=== PATIENT | male | born 1950 | race Caucasian/White ===

== ENCOUNTER 2024-09-14 05:43 | Inpatient (IN) | payer OTHER, SELFPAY ==
[2024-09-14] VITALS (15 sets, daily range): BP systolic 115–161; BP diastolic 68–126; BMI 48.4
--- NOTE | 2024-09-14 01:20 | ED.GENMED ---
History of Present Illness
General
Chief Complaint: Fall
Source: patient
Exam Limitations: none
Time Seen by Provider: 09/14/24 01:04
History of Present Illness
History of Present Illness:
73yoM with a history of morbid obesity and hypertension presenting via EMS for evaluation after a fall. Patient was attempting to change his dirty underwear this evening. He slid out of his chair and fell onto the floor. He denies any head strike
or loss of consciousness. Patient was unable to get himself back into the chair and EMS was called. EMS had a difficult time transferring him and brought him to the ED for evaluation of weakness. Patient has no other complaints at this time. He
is hypoxic to 88% on arrival although denies any chest pain or shortness of breath.
Past History
Past History
ED Past Medical History: HTN and Psychiatric (Anxiety); Negative Asthma, Hypercholesterolemia or NIDDM
ED Past Surgical History: Orthopedic (back surgery 2016 x 2, rods and screws)
Social History
Tobacco: Smoker
Alcohol: Binge drinker (scotch)
Drug: None
Personal:
Living: with family
Employment: Not employed
Phy Exam
Physical Exam
Physical Exam:
Chronically ill appearing, no apparent distress
General Physical Exam
General Presentation: no apparent distress
General Skin: warm and dry
General Habitus: elderly, obese and poor hygiene
General Mental: alert
ENT Exam
ENT Exam: normocephalic and other (No external signs of head trauma. No cervical spine tenderness.)
Cardiovascular Exam
Cardiovascular Exam: tachycardia
Pulmonary Exam
Pulmonary Exam: no respiratory distress and decreased breath sounds
Neurological Exam
Neurological Exam: alert
Jaz Coma Scale
Eye Opening: Spontaneous
Verbal Response: Oriented
Motor Response: Obeys Commands
GCS Total Score: 15
Skin Exam
Skin Exam: normal color, warm/dry and other (Skin irritation/redness under skin folds)
Psychiatric Exam
Psychiatric Exam: normal mood/affect
Course
Orders/Labs/Results
Orders:
Orders
09/14/24 01:17
EKG [Electrocardiogram (*1)] Urgent
Reason for Study: Tachycardia
EKG- Treatment ONCE
09/14/24 01:18
Cardiac Monitoring- Treatment ONCE
09/14/24 01:19
CR Chest Portable - 1 View Urgent
Comment:
Reason For Exam: Hypoxia
Reason Study Needs to be Portable: Unable to Transport
09/14/24 01:40
Complete Blood Count/With Diff Urgent
Comprehensive Metabolic Panel Urgent
D-Dimer Urgent
Magnesium Urgent
TSH Reflex To Free T4 Urgent
Total CK [Creatine Phosphokinase] Urgent
Troponin I Urgent
09/14/24 02:27
0.9% Sodium Chloride 500 ml [Nss] 500 ml IV BOLUS
09/14/24 04:34
Apixaban [Eliquis] 5 mg PO NOW STA
09/14/24 04:35
Admit/Transfer Patient As Directed
Co-Sign Provider:
Level of Care: Inpatient admission
Assign to:: IVU
Physician / Group: Antonia Griffin
Diagnosis: atrial flutter
Reason for Hospitalization: atrial flutter
Expected length of stay greater than two midnights?: Yes
ELOS- Estimated Length of Stay in days: 3
I certify the patient meets the requirements for IP care: Yes
Code Status As Directed
Resuscitation Status: Full Code
PRN Pain Medication Management As Directed
May give lesser potent ordered pain med per pt: Yes
preference::
Protocol:: Medication orders for pain may be administered in a
manner that supports deferring to patient preference
when the pt is:
- Requesting an ordered lesser potent pain medication.
Least to most potent pain medications are defined
as: acetaminophen < NSAID < tramadol < opioids
(morphine, oxycodone, hydromorphone).
- Requesting a lesser dose of the same medication IF
ORDERED.
- Requesting a less intrusive route of administration
if both routes are prescribed by the provider (PO <
IV).
09/14/24 04:38
Metoprolol [Lopressor] 25 mg PO NOW STA
09/14/24 05:05
Urinalysis Reflex To Culture Urgent
Date Specimen was Collected: 09/14/24
Time Specimen was Collected: 05:06
09/14/24 Breakfast
Cholesterol Lowering
At Your Request: Limited Participation
Cholesterol Lowering: Sodium, 2 Gram
09/14/24 08:43
Acetaminophen [Tylenol] 650 mg PO Q4HPRN PRN
Alprazolam [Xanax] 1 mg PO TIDPRN PRN anxiety
Bisacodyl [Dulcolax] 10 mg RECTAL [id number] PRN
Bupropion(24Hr)Extended Releas [WELLBUTRIN XL (24 hour extended release)] 150 mg PO Daily
Docusate W/Senna [Senokot-S] 1 tablet PO BIDPRN PRN
Paroxetine [Paxil] 40 mg PO DAILY
Polyethylene Glycol Powder [Miralax] 17 grams PO DAILYPRN PRN
09/14/24 08:43
Echo 2D MMode Color/Doppler Routine
Reason for Study: atrial flutter
Case Management Consult ONCE
Case Management Consult: Other
Comment: cost of Eliquis 5mg PO BID
Consult Cardiology [CARDIOLOGY CONSULT] Routine
Consulting Provider: Jun Spicer
Was physician already notified: No
Reason for consult: new aflutter
Consult Notification Routine
Specialty to Notify: Cardiology
Date consulting provider notified: 09/14/24
Time consulting provider notified: 08:54
Notified:: Provider
Activity As Directed
Activity Level: As Tolerated
Vital Signs As Directed
Frequency: Per unit guidelines
09/14/24 09:00
Lisinopril [Zestril] 20 mg PO DAILY
09/14/24 20:00
Apixaban [Eliquis] 5 mg PO BID
Metoprolol [Lopressor] 25 mg PO BID
09/15/24 Breakfast
NPO
Allow oral meds: Yes
Allow clear liquids: No
Basic Metabolic Panel IN AM
Complete Blood Count/No Diff IN AM
Magnesium IN AM
TSH IN AM
Abnormal Lab Results
09/14/24
01:40
WBC 11.0 H 10^3/uL
(4.8-10.8)
RBC 4.61 L 10^6/uL
(4.70-6.10)
MCV 97.8 H fL
(80.0-94.0)
MCH 33.2 H pg
(27.0-31.0)
RDW 15.0 H %
(11.5-14.5)
Abs Immat Gran (auto) 0.1 H 10^3/uL
(0-0.05)
Absolute Neuts (auto) 8.4 H 10^3/uL
(1.4-6.5)
Absolute Monos (auto) 0.8 H 10^3/uL
(0.1-0.6)
Immature Gran % 0.8 H %
(0-0.5)
Neutrophils % 75.9 H %
(42.2-75.2)
Lymphocytes % 12.3 L %
(20.5-51.1)
BUN 7 L mg/dl
(9-20)
Glucose 119 H mg/dl
(70-99)
Creatine Kinase 23 L U/L
(55-170)
Total Protein 6.1 L g/dl
(6.3-8.2)
09/14/24 01:40
09/14/24 01:40
Vital Signs
Initial and Last Documented VS:
Initial Vital Signs
Pulse Ox
88
09/14/24 01:00
Last Documented Vital Signs
Temp Pulse Resp BP Pulse Ox
98.3 F 88 20 140/84 97
09/14/24 01:35 09/14/24 09:32 09/14/24 09:26 09/14/24 09:32 09/14/24 09:26
MDM/Problems Addressed
Differential Diagnosis Includes:
73yoM here after a fall out of his chair. Unable to get up so EMS was called. Denies injuries. HR 130 on arrival. Oxygen saturation 88-90% on room air. He is chronically ill appearing and morbidly obese. Differential diagnosis includes but is not
limited to: failure to thrive, arrhythmia, PE, dehydration
Initial ED plan: Check cardiac labs, magnesium, TSH, D-dimer, EKG, and CXR.
*Pulse Oximetry
Patient hypoxic: no (90%)
*EKG
Interpreted by ED Provider?: Yes
EKG Intrepretation Date: 09/14/24
Heart Rate: 128
Rate: tachycardiac
Rhythm: other (sinus tach vs. aflutter)
[place]: right axis deviation
QRS Pattern: normal QRS
Ischemia: no ischemia
*Critical Care Note
Total Time (30-74mins, 75-104mins- exclusive of procedures): Not Applicable
Update Note
Update Note:
EKG shows sinus tachycardia vs. aflutter. Labs unremarkable including normal electrolytes, TSH, troponin. D-dimer normal making PE very unlikely. CXR appears clear per my interpretation without any obvious infiltrates/pulmonary edema. Patient
persistently tachycardic. Will admit for further management.
ED Attending Note
-
Portions of this chart may have been created with voice recognition software.� Occasional wrong word or��sound alike� substitutions may have occurred due to the inherent limitations of voice recognition software.
Discharge Plan
Departure
Patient Disposition: Admit
Date of Disposition: 09/14/24
Time of Disposition: 02:45
Presentation/result/management discussed w/ accepting MD/DO: Hospitalist
Discharge Problem:
Tachycardia, Ground-level fall
Interventions
Interventions:
*Risk Screen - Suicide Last Done: 09/14/24 01:01
*General Assessment Last Done: 09/14/24 01:37
*Neglect/Abuse Screening Last Done: 09/14/24 01:37
*ED- Fall Risk Assessment Last Done: 09/14/24 01:37
*ED COVID-19 Vaccine History Last Done: 09/14/24 01:37
*Nursing Disposition Last Done: 09/14/24 08:30
ED-Musculoskeletal Assessment Last Done: 09/14/24 01:15
ED- Neurological Assessment Last Done: 09/14/24 01:15
ED-Skin Assessment Last Done: 09/14/24 01:15
Discharge Date and Time
Discharge Date/Time: 09/14/24 08:31
[2024-09-14 01:46] LABS: Hematocrit 45.1 % (39.0-52.0); Hemoglobin 15.3 g/dL (13.0-18.0); Mean Corp Hgb Conc. 33.9 g/dL (33.0-37.0); Mean Corpuscular Volume 97.8 fL (80.0-94.0); Nucleated Red Blood Cells % 0 % (-); Platelet Count 243 10^3/uL (130-400); Red Cell Dist. Width 15.0 % (11.5-14.5)
[2024-09-14 01:59] LABS: ALT (SGPT) 27 U/L (0-50); AST (SGOT) 29 U/L (17-59); Albumin 3.7 g/dl (3.5-5.0); Alkaline Phosphatase 112 U/L (38-126); Blood Urea Nitrogen 7 mg/dl (9-20); Calcium 9.0 mg/dl (8.4-10.2); Carbon Dioxide 26 mmol/L (22-30); Chloride 106 mmol/L (98-107); D-Dimer 0.39 ug/mlFEU (0.00-0.50); Estimated Creatinine Clearance > 125 ml/min; Glucose 119 mg/dl (70-99); Magnesium 2.1 mg/dl (1.6-2.3); Potassium 3.9 mmol/L (3.5-5.1); Sodium 142 mmol/L (135-145); Total Protein 6.1 g/dl (6.3-8.2); eGFR > 60.00
[2024-09-14 02:22] LABS: Troponin I < 0.012 ng/ml
[2024-09-14] MEDS: NSS 500 IV (02:42)
--- NOTE | 2024-09-14 04:10 | HPS.HSE ---
Family Physician
-
Family Physician: Jorje Goode
Chief Complaint
-
difficulty getting up from ground after fall from chair
History of Present Illness
Mr. Partha Young is a 73 yo man with hx essential HTN, anxiety, obesity presents to the ER for evaluation post a fall. Patient fell out of his chair and onto the floor while changing. He did not hit head or lose consciousness. Patient couldn't
get back into chair and so EMS was called.
Patient states he could usually walk around house with a walker. He denies chest pain or palpitations. No recent fevers/chills. No nausea/vomiting/diarrhea. No shortness of breath.
Medical History
Past Medical History
Past Medical History: Reports Other (Essential HTN, Anxiety, Obesity )
Past Surgical History: Reports Other
Social History
Tobacco: Non-smoker
Alcohol: Occasional
Family History
Family History: Not pertinent
Allergies / Home Medications
Allergies reflects when Allergies were last updated in [facility].
Home Medications with original date entered in [facility]
Allergy/Medication List:
Allergies
Allergy/AdvReac Type Severity Reaction Status Date / Time
No Known Allergies Allergy Verified 06/08/21 14:55
Home Medications
alprazolam 1 mg tablet 1 mg PO TID PRN anxiety 11/17/15
lisinopril 40 mg tablet 40 mg PO DAILY 11/17/15
paroxetine HCl 20 mg tablet 40 mg PO DAILY 11/17/15
bupropion HCl 150 mg 24 hr tablet, extended release 150 mg PO Daily 06/08/21
ibuprofen 200 mg tablet 200 mg PO Q4HPRN PRN pain 06/08/21
cholecalciferol (vitamin D3) 25 mcg (1,000 unit) tablet (Vitamin D3) 25 mcg PO DAILY 09/14/24
Review of Systems
-
History Source: Patient
A 12 point ROS was completed and negative except as noted: Yes
Physical Exam
Vital Signs
Vital Signs
Temp Pulse Resp BP Pulse Ox
98.3 F 131 16 161/126 93
09/14/24 01:35 09/14/24 03:00 09/14/24 03:00 09/14/24 03:00 09/14/24 03:00
Physical Exam
General: No Apparent Distress
HEENT: PERRLA
Respiratory: Clear; No Wheezes
Cardiac: Tachycardia
GI: Soft and Non Tender
Musculoskeletal: No Edema
Skin: Warm and Dry; No Rash
Neuro: AO x 3
Psych: Calm
Laboratory Results
-
09/14/24 01:40
09/14/24 01:40
Laboratory Results
Total Bilirubin 0.6 mg/dl (0.2-1.3) 09/14/24 01:40
AST 29 U/L (17-59) 09/14/24 01:40
ALT 27 U/L (0-50) 09/14/24 01:40
Alkaline Phosphatase 112 U/L (38-126) 09/14/24 01:40
Troponin I < 0.012 ng/ml 09/14/24 01:40
Data Reviewed
-
Diagnostic Radiology: Report Reviewed by me
Lab Data: Labs Reviewed by me
Impression/Plan
-
Mr. Partha Young is a 73 yo man with hx essential HTN, anxiety, obesity presents to the ER for evaluation post a fall. Patient fell out of his chair and onto the floor while changing. He did not hit head or lose consciousness. Patient couldn't
get back into chair and so EMS was called. Patient found to be in aflutter which can explain new weakness today.
Triage VS significant for tachycardia and SpO2 88% RA
LABS: WBC 11, Hg 15.3, PLT 243, Na 142, K+ 3.9, Cl 106, CO2 26, BUN 7, Cr 0.7, Glucose 119, liver enzymes WNL, Trop < 0.012
TSH 0.72
EKG: aflutter with variable AV block
MAR NS 500cc
Atrial Flutter
-new diagnosis
-admit to IVU
-will start Metoprolol 25mg PO BID
-[id number] score = 2, start Eliquis 5mg PO BID
-Cardiology consult
-NPO after MN Sunday for possible Cardioversion
Hypoxic respiratory insufficiency
patient denies shortness of breath, likely related to atelectasis and body habitus
wean O2 as able
Essential HTN
-lower dose of Lisinopril to make room for AV sofia blocking effect on BP
Anxiety
-[employer]ER Wellbutrin, Xanax PRN
DVT PPx Eliquis
FULL CODE
[2024-09-14] MEDS: ELIQUIS 5 MG PO ×2 (05:14→20:01)
[2024-09-14] MEDS: LOPRESSOR 25 MG PO ×2 (05:14→20:01)
--- NOTE | 2024-09-14 07:39 | W.PN.HOSP.TC ---
Today's Communication/Plan
-
See plan
Assessment / Plan
Assessment / Plan
Physical Exam
General: No Apparent Distress
HEENT: Normocephalic
Respiratory: Clear; No Wheezes
Cardiac: Tachycardia
GI: Soft and Non Tender
Musculoskeletal: No Edema
Skin: Warm and Dry; No Rash
Neuro: AO x 3
Psych: Calm
Assessment/Plan
73 y/o male with past medical history essential hypertension, anxiety and obesity presented to the emergency room for evaluation post a fall. Patient fell out of his chair and onto the floor while changing. He did not hit head or lose
consciousness. Patient couldn't get back into chair and so EMS was called. Patient stated he could usually walk around house with a walker. He denied chest pain or palpitations. No recent fevers/chills. No nausea/vomiting/diarrhea. No shortness of
breath.

Triage VS significant for tachycardia and SpO2 88% RA
LABS: WBC 11, Hg 15.3, PLT 243, Na 142, K+ 3.9, Cl 106, CO2 26, BUN 7, Cr 0.7, Glucose 119, liver enzymes WNL, Trop < 0.012
TSH 0.72
EKG: aflutter with variable AV block
MAR NS 500cc

Atrial Flutter
-New diagnosis
-Continue to monitor in IVU
-Continue newly started Metoprolol 25mg PO BID
-[id number] score = 2, start Eliquis 5mg PO BID
-Cardiology consult
-NPO after MN Sunday for possible Cardioversion
Hypoxic respiratory insufficiency
-patient denies shortness of breath, likely related to atelectasis and body habitus
-wean O2 as able
Essential Hypertension
-Dose of Lisinopril lowered to 20 mg daily, to make room for AV sofia blocking effect on BP
Anxiety
-[employer] CONSULTANT Wellbutrin, Xanax PRN
DVT Prophylaxis: Eliquis
Code Status: FULL CODE
Anticipated Discharge: > 48 hours
Subjective/Interval History
-
Date of Service: September 14, 2024
Patient was seen and examined. He denied any chest pain, shortness of breath, dizziness or any other symptoms or complaints.
Objective Data
-
Labs:
Laboratory Results
09/14/24
01:40
WBC 11.0 H
Hgb 15.3
Hct 45.1
Plt Count 243
Sodium 142
Potassium 3.9
Chloride 106
Carbon Dioxide 26
BUN 7 L
Creatinine 0.7
Glucose 119 H
Calcium 9.0
Total Bilirubin 0.6
AST 29
ALT 27
Alkaline Phosphatase 112
Vital Signs:
Vital Signs
Temp Pulse Resp BP Pulse Ox
98.3 F 123 21 154/99 90
09/14/24 01:35 09/14/24 07:00 09/14/24 07:00 09/14/24 07:00 09/14/24 05:15
[2024-09-14] MEDS: PAXIL 40 MG PO (09:32)
[2024-09-14] MEDS: WELLBUTRIN XL (24 hour extended release) 150 MG PO (09:32)
[2024-09-14] MEDS: ZESTRIL 20 MG PO (09:32)
[2024-09-14] MEDS: FLUSH (NSS) 1 FLUSH IV (09:33)
--- NOTE | 2024-09-14 10:17 | PTCARENOTE ---
Received patient from the ED, transferred to the bed with slider sheet. Patient AAO x 3, difficulty lying on his back while changing linens due to back pain. Incontinent of a large amount of urine, patient states he wears depends at home and slid
out of his chair while changing and was unable to get up from the floor. Severe areas of MASR under breasts, abdominal folds, groins and perineal are. Patient states he uses a walker at home and normally sleeps in a chair. He telephoned his at
home to tell her where he was located. Patient in SR upon admission and offers no complaints other than stating he was 'nervous'. Given AM meds, refusing breakfast at this time, call kaden in reach.
[2024-09-14] MEDS: DESENEX/MITRAZOL/ZEASORB 1 APPLIC TOPICAL ×2 (13:45→20:01)
[2024-09-14] MEDS: ANTIFUNGAL CLEAR 1 APPLIC TOPICAL ×2 (13:45→20:01)
[2024-09-14] MEDS: XANAX 1 MG PO ×2 (14:30→21:13)
--- NOTE | 2024-09-14 14:46 | PTCARENOTE ---
Patient with multiple areas of extreme MASD on his axilla, under his breasts, abdominal and groin folds. Areas very reddened and tender, he is grossly incontinent and that he sits in his recliner most of the day. Toe nails extremely long, states he
does not leave the house at all and that his PCP comes to his home. States his shower is upstairs and he has not been getting around well. in and appears overwhelmed, states 'I guess I'm not doing a good job'. Patient given a complete bed
bath, antifungal powder/lotions applied. WOC and case management consulted, will request PT/OT eval.
--- NOTE | 2024-09-14 16:57 | CON.CAR ---
Consultation
Consultation Request
Date/Time Consultation Requested: 09/14/2024
Date/Time Consultation Performed: 09/14/2024
Requesting Provider: Dr. Griffin
Performing Provider: Dr. Spicer
Reason for Consultation: Possible atrial flutter
Medical History
-
Chief Complaint: Fall
History of Present Illness:
73-year-old male with hypertension, former heavy smoker (quit approximately 1 year ago), likely essential tremor/Parkinson's (clinical observation), binge drinker, and morbid obesity (who primarily uses a walker) presenting after falling out of a
chair at home. The patient denies any prodromal symptoms. He states that he fell out of the chair after trying to change his adult diaper. He denies chest pain, shortness of breath, palpitations, or loss of consciousness. He has chronic lower
extremity swelling. He admits to drinking a notable amount of alcohol (1/2 bottle of scotch/whiskey daily throughout the week), but he states that it is not every single day. He states that he had more to drink this holiday weekend. Cardiology
was consulted for possible atrial flutter. Of note, the patient has had recurrent falls at home for which she has presented to the ER several times over the years.
Past Medical History
Past Medical History: HTN
Past Surgical History: Orthopedic (Back surgery)
Social History
Tobacco: Former Smoker (Quit 1 year ago)
Alcohol: Chronic Alcoholic (Typically 1/2 bottle of scotch daily, sometimes more)
Drug: None
Personal:
Living: With Family
Family History
Family History: Reviewed & Not Pertinent
Allergies / Home Medications
Allergy/AdvReac Type Severity Reaction Status Date / Time
No Known Allergies Allergy Verified 06/08/21 14:55
�Medication �Instructions �Recorded �Confirmed �Type
alprazolam 1 mg tablet 1 mg PO TID PRN anxiety 11/17/15 09/14/24 History
lisinopril 40 mg tablet 40 mg PO DAILY 11/17/15 09/14/24 History
paroxetine HCl 20 mg tablet 40 mg PO DAILY 11/17/15 09/14/24 History
bupropion HCl 150 mg 24 hr tablet, 150 mg PO Daily 06/08/21 09/14/24 History
extended release
ibuprofen 200 mg tablet 200 mg PO Q4HPRN PRN pain 06/08/21 09/14/24 History
cholecalciferol (vitamin D3) 25 25 mcg PO DAILY 09/14/24 09/14/24 History
mcg (1,000 unit) tablet (Vitamin
D3)
Review of Systems
-
All other systems: Negative unless noted
Musculoskeletal: Joint Pain
Physical Exam
Vital Signs
Temp Pulse Resp BP Pulse Ox
97.9 F 87 20 117/73 96
09/14/24 14:59 09/14/24 15:45 09/14/24 14:59 09/14/24 15:00 09/14/24 15:00
Lab Results
09/14/24 01:40
09/14/24 01:40
Troponin I < 0.012 ng/ml 09/14/24 01:40
Physical Exam
General: No Apparent Distress and Comfortable
HEENT: Normocephalic
Respiratory: Clear (Anteriorly)
Cardiac: S1/S2 and Regular Rhythm
Breast: N/A
GI: Soft
Rectal: Deferred by Provider
Musculoskeletal: Edema (Trace; obese)
Skin: Warm and Dry
Neuro: AO x 3 and Tremors (Baseline tremor noted on the right side (hand and much more prominent in his right foot))
Psych: Calm
Impression / Plan
-
73-year-old male with hypertension, former heavy smoker (quit approximately 1 year ago), likely essential tremor/Parkinson's (clinical observation), binge drinker, and morbid obesity (who primarily uses a walker) presenting after falling out of a
chair at home. The patient denies any prodromal symptoms. He states that he fell out of the chair after trying to change his adult diaper. He denies chest pain, shortness of breath, palpitations, or loss of consciousness. He has chronic lower
extremity swelling. He admits to drinking a notable amount of alcohol (1/2 bottle of scotch/whiskey daily throughout the week), but he states that it is not every single day. He states that he had more to drink this holiday weekend. Cardiology
was consulted for possible atrial flutter. Of note, the patient has had recurrent falls at home for which she has presented to the ER several times over the years.
Tachycardia:
- Upon review of the patient's EKG, uncertain that that is truly atrial flutter--could be sinus tachycardia.
- Patient's baseline tremor is interfering with accurate interpretation.
- Continue monitor tech; will have EP Cardiology review tomorrow.
- The patient was started on Eliquis; discontinue if EP Cardiology does not believe this is atrial flutter.
- Of note, the patient appears to be a fall risk--he has had recurrent falls throughout the year and is a chronic, heavy drinker at times; also uses a walker, but still has falls.
- Echocardiogram tomorrow.
- TSH is normal.
Hypertension:
- Blood pressure is currently controlled.
- Continue lisinopril 20 mg daily.
- Patient was started on metoprolol tartrate 25 mg PO BID; continue for now.
Alcohol dependence:
- Monitor for signs of alcohol withdrawal.
- Management as per primary team.
Chronic smoker:
- Quit 1 year ago.
- Likely has underlying COPD, but respiratory status appears to be stable at this time.
Morbid obesity:
- Chronic; weight loss recommended.
Data Reviewed
-
EKG: Report Reviewed by me (Sinus tachycardia cardia versus atrial flutter)
Radiology: Report Reviewed by me (Chest X-ray 09/14/2024: Mild cardiomegaly with findings suggestive of mild pulmonary edema)
Medical Tests (Nuc Med, Echo etc): Other (Echocardiogram ordered)
Labs: Labs Reviewed by me, Discussed with Nurse, Discussed with Patient and Discussed with Family ( at bedside)
--- NOTE | 2024-09-14 18:11 | PTCARENOTE ---
Patient complaining of feeling anxious, given xanax PO with relief. Appetite poor, incontinent of a large amount of stool.
--- NOTE | 2024-09-14 21:07 | PTCARENOTE ---
Received pt @ change of shift. AAOx3, VSS on 2L NC. NSR on monitor. Pt has MASB under all skin folds-- orders followed for topicals-- see MAR. Pt verbalizes being anxious-- RN informed he was not able to get his next dose of Xanax until later-- pt
understands. Discussed plan of care for evening. Pt verbalizes understanding. Call alfonso within reach..
[2024-09-15] VITALS (13 sets, daily range): BP systolic 118–175; BP diastolic 69–105; PULSE 77; O2SAT 95–98
[2024-09-15] MEDS: XANAX 1 MG PO ×3 (01:03→19:04)
[2024-09-15 04:43] LABS: Hematocrit 43.1 % (39.0-52.0); Hemoglobin 14.5 g/dL (13.0-18.0); Mean Corp Hgb Conc. 33.6 g/dL (33.0-37.0); Mean Corpuscular Volume 100.9 fL (80.0-94.0); Platelet Count 182 10^3/uL (130-400); Red Cell Dist. Width 15.1 % (11.5-14.5)
[2024-09-15 04:53] LABS: Blood Urea Nitrogen 12 mg/dl (9-20); Calcium 9.2 mg/dl (8.4-10.2); Carbon Dioxide 30 mmol/L (22-30); Chloride 106 mmol/L (98-107); Estimated Creatinine Clearance > 125 ml/min; Glucose 101 mg/dl (70-99); HDL Cholesterol 49 mg/dl; LDL Cholesterol, Calculated 105 mg/dl; Magnesium 2.3 mg/dl (1.6-2.3); Potassium 4.0 mmol/L (3.5-5.1); Sodium 142 mmol/L (135-145); Very Low Density Lipoprotein 29 mg/dl (0-30); eGFR > 60.00
[2024-09-15 05:24] LABS: TSH 1.43 uIU/ml (0.47-4.68)
--- NOTE | 2024-09-15 07:42 | W.PN.HOSP.TC ---
Today's Communication/Plan
-
wean O2 supplementation as tolerated
PT/OT
rate Control
MSAS protocol
Assessment / Plan
Assessment / Plan
Physical Exam
General: No Apparent Distress, appears relatively comfortable, morbidly obese
HEENT: Normocephalic
Respiratory: Clear; No Wheezes
Cardiac: Tachycardia
GI: Soft and Non Tender
Musculoskeletal: No Edema
Skin: Warm and Dry; No Rash
Neuro: AO x 3 conversant coherent
Psych: Calm
Assessment/Plan
73 y/o male with past medical history essential hypertension, anxiety and obesity presented to the emergency room for evaluation post a fall. Patient fell out of his chair and onto the floor while changing. He did not hit head or lose
consciousness. Patient couldn't get back into chair and so EMS was called. Patient stated he could usually walk around house with a walker. He denied chest pain or palpitations. No recent fevers/chills. No nausea/vomiting/diarrhea. No shortness of
breath.
Atrial Flutter ruled out, determined to be NSVT
-IVU admit
-Continue newly started Metoprolol 25mg PO BID
-Cardiology consult appreciated
-ECHO appreciated technically limited study Normal biventricular size and systolic function without regional wall motion
abnormality.
Hypoxic respiratory insufficiency
-patient denies shortness of breath, likely related to atelectasis and body habitus
-wean O2 as able
Essential Hypertension
-Dose of Lisinopril lowered to 20 mg daily, to make room for AV sofia blocking effect on BP
-Metoprolol as above
Anxiety
-[employer]ORER Wellbutrin, Xanax PRN
Hx ETOH use
MSAS protocol
PT/OT appreciated SNF rehab
DVT Prophylaxis: Eliquis switched to Lovenox twice daily d/t obesity
Code Status: Full Code
I spent a total of 45 minutes with the patient or on the floor. More than 50% of this time involved counseling and coordination of care.
Anticipated Discharge: 24 - 48 hours
Subjective/Interval History
-
Date of Service: September 15, 2024
Seen and examined at bedside in no acute distress sitting up comfortably in bed. Noted tremors in outstretched hands. On nasal cannula but weaning off, denied sob palpitations chest pain.
Objective Data
-
Labs:
Laboratory Results
09/15/24
04:18
WBC 9.0
Hgb 14.5
Hct 43.1
Plt Count 182 D
Sodium 142
Potassium 4.0
Chloride 106
Carbon Dioxide 30
BUN 12
Creatinine 0.7
Glucose 101 H
Calcium 9.2
Vital Signs:
Vital Signs
Temp Pulse Resp BP Pulse Ox
98.1 F 86 20 140/76 97
09/15/24 06:55 09/15/24 06:55 09/15/24 06:55 09/15/24 04:19 09/15/24 06:55
I&O
09/14/24 09/15/24 09/16/24
06:59 06:59 06:59
Intake Total 120 / 120
Balance 120 / 120
--- NOTE | 2024-09-15 08:30 | PTCARENOTE ---
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
[2024-09-15] MEDS: ZESTRIL 20 MG PO (09:00)
[2024-09-15] MEDS: LOPRESSOR 25 MG PO ×2 (09:00→19:04)
[2024-09-15] MEDS: ELIQUIS 5 MG PO (09:00)
[2024-09-15] MEDS: WELLBUTRIN XL (24 hour extended release) 150 MG PO (09:00)
[2024-09-15] MEDS: PAXIL 40 MG PO (09:00)
[2024-09-15] MEDS: DESENEX/MITRAZOL/ZEASORB 1 APPLIC TOPICAL ×2 (09:01→20:55)
[2024-09-15] MEDS: ANTIFUNGAL CLEAR 1 APPLIC TOPICAL ×2 (09:02→20:55)
[2024-09-15 10:19] LABS: Glycohemoglobin (HgbA1c) 4.6 % (4.0-5.6)
--- NOTE | 2024-09-15 10:27 | CON.CAR ---
Consultation
Consultation Request
Date/Time Consultation Requested: 09/15/2024 at 0813 hrs
Date/Time Consultation Performed: 09/15/2024 at about 0830 hrs
Requesting Provider: Jun Spicer MD and TI Ortiz
Performing Provider: Luis Mcmullen MD
Reason for Consultation: Tachycardia, is it atrial flutter?
Medical History
-
Chief Complaint: Fall, no syncope
History of Present Illness:
Patient admitted after a fall and inability to get up.
EKG showed tachycardia and computer called the rhythm atrial flutter.
By time placed on telemetry in IVU he was in sinus. Duration of tachycardia is unknown.
No CP/dyspnea/palpitations/syncope.
Past Medical History
Past Medical History: HTN, Psychiatric (anxiety) and Other (ambulatory dysfunction, morbid obesity)
Past Surgical History: Orthopedic (spine/back surgery)
Social History
Tobacco: Former Smoker
Alcohol: Binge Drinker (very heavy drinker)
Personal:
Living: With Family
Family History
Family History: Other (no premature CAD)
Allergies / Home Medications
Allergy/AdvReac Type Severity Reaction Status Date / Time
No Known Allergies Allergy Verified 06/08/21 14:55
�Medication �Instructions �Recorded �Confirmed �Type
alprazolam 1 mg tablet 1 mg PO TID PRN anxiety 11/17/15 09/14/24 History
lisinopril 40 mg tablet 40 mg PO DAILY 11/17/15 09/14/24 History
paroxetine HCl 20 mg tablet 40 mg PO DAILY 11/17/15 09/14/24 History
bupropion HCl 150 mg 24 hr tablet, 150 mg PO Daily 06/08/21 09/14/24 History
extended release
ibuprofen 200 mg tablet 200 mg PO Q4HPRN PRN pain 06/08/21 09/14/24 History
cholecalciferol (vitamin D3) 25 25 mcg PO DAILY 09/14/24 09/14/24 History
mcg (1,000 unit) tablet (Vitamin
D3)
Review of Systems
-
History Source: Patient
Constitutional: No Symptoms
EENT: No Symptoms
Cardiac: No Symptoms
Physical Exam
Vital Signs
Temp Pulse Resp BP Pulse Ox
98.1 F 86 20 140/76 97
09/15/24 06:55 09/15/24 06:55 09/15/24 06:55 09/15/24 04:19 09/15/24 06:55
Lab Results
09/15/24 04:18
09/15/24 04:18
Troponin I < 0.012 ng/ml 09/14/24 01:40
Pue-M-Jfufozczzyz Pept 534 pg/ml 09/15/24 04:18
Physical Exam
General: Well Nourished
Respiratory: Clear
Cardiac: S1/S2 and Regular Rhythm; Negative Peripheral Edema
GI: Soft and Non Tender
Skin: Warm and Dry
Neuro: AO x 3 and No Motor Deficits
Psych: Calm
Impression / Plan
-
Tachycardia, broke to sinus
- Not atrial flutter => I stopped Eliquis
- Tachycardia was SVT, a long R-P tachycardia. EPS would be need to determine if AT, atypical AVNRT, or slowly conducting posteroseptal bypass tract. No current indication for EPS/ablation
- No symptoms from tachycardia, not recurrent on telemetry so far
- Adding a non-dihydropyridine calcium channel falguni�(dilt/verapamil) if echo unremarkable, or a beta falguni if LV systolic dysfunction is present is appropriate
- If tachycardia becomes incessant or symptomatic despite meds then we can consider EPS/ablation although he not a great candidate for invasive treatment
HTN
At least a heavy drinker of ETOH
Former smoker
Morbid obesity, BMI 48
Ambulatory dysfunction
Subjective: No CP, palpitations, or dyspnea
Data Reviewed
-
EKG: Tracing Personally Visualized and interpreted (admit ekg is a long R-P tachycardia and not atrial flutter)
Radiology: Image Personally Visualized and interpreted (portable study, I dont see the heart failure that radiology noted in their report)
Total Time Spent with Patient (in minutes): 80 min, review records, study tracings/telemetry, see pt, prepare document
--- NOTE | 2024-09-15 11:45 | WOUNDNOTE ---
L THIGH (LATERAL POSTERIOR)
--- NOTE | 2024-09-15 11:45 | WOUNDNOTE ---
[facility] RN note: Patient admitted with atrial flutter. Patient feel from chair at home prior to admission. Patient lives with his . He sleeps in a recliner chair at home.
See H&P for complete history.
PMH: HTN, obesity.
Wound Location and type/assessment: Patient admitted with: MASD along with yeast redness abdominal/groin folds with linear deep dermal openings L side, dermal linear open skin R groin. MASD along with yeast redness anterior chest folds, axilla
area. Linear dermal opening L inner thigh d/t patient uses an incontinence brief at home. L lateral and posterior dermal small openings suspect from friction from frequent sitting at home. L forearm bruise with small scabbed abrasion.
Appetite: on a low cholesterol diet.
Pressure redistribution devices in place: [employer] Accumax. Patient turns slowly in bed and needs some assistance.
Plan: Patient incontinent of urine. Underpads and linen changed, skin care performed and static air overlay applied with help from YASMEEN Craig and [facility] RN student Yola Bennett. Heels off bed with air chair cushion. Bariatric air chair cushion given. PT/OT
in to see patient just after visit who are aware of air overlay and bariatric air chair cushion.
Will confirm orders with Dr. Christie and discussed with YASMEEN Craig.
Care plan to be updated and will follow as needed.
Note to case management of equipment requested for discharge: Air mattress at SNF/rehab. VN if goes home. Patient aware to take the bariatric air chair cushion with him when discharged.
Recommend follow up at wound care center upon discharge if needed.
--- NOTE | 2024-09-15 11:45 | WOUNDNOTE ---
L THIGH (MEDIAL/UPPER)
--- NOTE | 2024-09-15 11:45 | WOUNDNOTE ---
L GROIN/OUTER ABDOMINAL FOLD
--- NOTE | 2024-09-15 11:45 | WOUNDNOTE ---
L GROIN/OUTER ABDOMINAL FOLD
--- NOTE | 2024-09-15 11:45 | WOUNDNOTE ---
L CHEST FOLD (ANTERIOR)
--- NOTE | 2024-09-15 14:40 | CM ---
Addendum entered by Africa Ramachandran 09/15/24 15:50:
Met with and Mrs. Young to review discharge plans. Reviewed Snf/Rehab. with them. He is declining SNF/Rehab. He is agreeable to [facility]. Referral sent to Sherman and Chris for approval and acceptance of referral. Also review
co-pay for Eliquis 5 mg po bid. The co-pay would be $47.00 a month or $126.00 for 90 day supply via mail order. PLaced the one month free coupon in his red discharge folder. He states he does not think he will be on Eliquis at home.
Original Note:
Reviewed chart. Met with Mr. Young to review discharge plans. He states prior to admission he resides with his spouse in a spilt level home with one steps to enter. He states he has four steps to each level. He states he has a stair glide to each
level. He states he spends most of his time in the lower level. He states he has a east-life chair at home. He states prior to admisison he ambulates with a walker. He states he has a walker stair glide, easy lift chair and shower bench at home.
He states he has has [facility] in the past. He states he was in rehab. in the past. We reviewed VNA Services and he is agreeable to [facility]. We reviewed SNF/Rehab. He states he will not consider going to a SNF at this time.
He states he has a prescription plan and uses [facility]. He states he will need some transportation to get him home if he goes home. Medical work-up in progress. The discharge plan is to return home with his spouse and [facility]
versus SNF/Rehab. if bed available and he is agreeable when medically stable.
--- NOTE | 2024-09-15 15:14 | CARDSERVLU ---
Echocardiogram with Lumason completed after protocol screening completed. Allergies verified.
Patent IV site: left AC____
IV site flushed with 0.9% NaCl pre and post administration.
Diluted bolus method utilized to enhance visualization of ventricular cuellar.
Total volume given: _3.5___ mL
Patient tolerated all procedures well without complications.
--- NOTE | 2024-09-15 18:54 | PTCARENOTE ---
no change from previous assessment
[2024-09-16] VITALS (7 sets, daily range): BP systolic 116–146; BP diastolic 62–81; BMI 45.8
--- NOTE | 2024-09-16 00:02 | PTCARENOTE ---
Rec'd pt at change of shift. AAO*3, VSS, and pt SR on TELE monitor. Pt with clammy skin and hand tremors, also verbalizing anxious feeling. PRN Xanax given as ordered, pt reported relief after administration. Pt incontinent of urine and stool.
Pt kept on high all risk precaution. Static air foam on bed, wound care complete, and Q2T. Pt verbalizes pt/ot as being next goal/step to dc. See MAR and flowchart for full pt care and assessment. Pt resting with call alfonso in reach.
[2024-09-16] MEDS: XANAX 1 MG PO ×4 (03:42→20:32)
[2024-09-16 04:10] LABS: Hematocrit 40.6 % (39.0-52.0); Hemoglobin 13.4 g/dL (13.0-18.0); Mean Corp Hgb Conc. 33.0 g/dL (33.0-37.0); Mean Corpuscular Volume 101.0 fL (80.0-94.0); Platelet Count 159 10^3/uL (130-400); Red Cell Dist. Width 14.7 % (11.5-14.5)
[2024-09-16 04:31] LABS: Blood Urea Nitrogen 17 mg/dl (9-20); Calcium 9.2 mg/dl (8.4-10.2); Carbon Dioxide 33 mmol/L (22-30); Chloride 108 mmol/L (98-107); Estimated Creatinine Clearance 111 ml/min; Glucose 97 mg/dl (70-99); Magnesium 2.2 mg/dl (1.6-2.3); Potassium 4.0 mmol/L (3.5-5.1); Sodium 141 mmol/L (135-145); eGFR > 60.00
[2024-09-16 05:35] LABS: Folate 12.6 ng/ml (2.76-20); Vitamin B12 460 pg/ml (239-931)
[2024-09-16] MEDS: ZESTRIL 20 MG PO (08:24)
[2024-09-16] MEDS: VITAMIN D3 (cholecalciferol) 25 MCG PO (08:24)
[2024-09-16] MEDS: PAXIL 40 MG PO (08:29)
[2024-09-16] MEDS: WELLBUTRIN XL (24 hour extended release) 150 MG PO (08:29)
[2024-09-16] MEDS: LOPRESSOR 25 MG PO (08:30)
[2024-09-16] MEDS: LOVENOX 40 MG SC ×2 (08:30→20:24)
[2024-09-16] MEDS: ANTIFUNGAL CLEAR 1 APPLIC TOPICAL ×2 (08:31→20:26)
[2024-09-16] MEDS: DESENEX/MITRAZOL/ZEASORB 1 APPLIC TOPICAL ×2 (08:31→20:27)
--- NOTE | 2024-09-16 09:55 | W.PN.HOSP.TC ---
Today's Communication/Plan
-
monitor MSAS scores
Metoprolol switched to propanolol for tremors
nocturnal oxygenation study and home oxygen assessment
recommended SNF rehab, patient however refusing at this time.
Assessment / Plan
Assessment / Plan
Physical Exam
General: No Apparent Distress, appears relatively comfortable, morbidly obese
HEENT: Normocephalic
Respiratory: Clear; No Wheezes
Cardiac: Tachycardia
GI: Soft and Non Tender
Musculoskeletal: No Edema
Skin: Warm and Dry; No Rash
Neuro: AO x 3 conversant coherent
Psych: Calm
Assessment/Plan
73M with past medical history essential hypertension, anxiety and obesity presented to the emergency room for evaluation post a fall. Patient fell out of his chair and onto the floor while changing. He did not hit head or lose consciousness.
Patient couldn't get back into chair and so EMS was called. Patient stated he could usually walk around house with a walker. He denied chest pain or palpitations. No recent fevers/chills. No nausea/vomiting/diarrhea. No shortness of breath.
Atrial Flutter ruled out, determined to be NSVT
-IVU admit
-Continue newly started Metoprolol 25mg PO BID later switched to Propranolol given concern essential tremors as below
-Cardiology consult appreciated
-ECHO appreciated technically limited study Normal biventricular size and systolic function without regional wall motion
abnormality.
Hypoxic respiratory insufficiency
Suspect Obesity Hypoventilation syndrome vs LINSEY
-patient denies shortness of breath, likely related to atelectasis and body habitus
-wean O2 as able
-Nocturnal Oxygenation study and home oxygen assessment
Essential Hypertension
-Dose of Lisinopril lowered to 20 mg daily, to make room for AV sofia blocking effect on BP
-Metoprolol as above
Anxiety
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
Hx ETOH use
monitor MSAS scores
Suspect Essential tremors
-started on propranolol
PT/OT appreciated SNF rehab patient however refusing in favor of home rehab
DVT Prophylaxis: Ric switched to Lovenox twice daily d/t obesity
Code Status: Full Code
Discussed with patient and patient's Lu
I spent a total of 45 minutes with the patient or on the floor. More than 50% of this time involved counseling and coordination of care.
Anticipated Discharge: Within 24 hours
Subjective/Interval History
-
Date of Service: September 16, 2024
No acute distress resting comfortably in bed. Remains on nasal cannula supplementation. tremors remain present on outstretched hands. Otherwise patient reports feeling well. Denies new acute issues.
Objective Data
-
Labs:
Laboratory Results
09/16/24
03:49
WBC 6.6
Hgb 13.4
Hct 40.6
Plt Count 159
Sodium 141
Potassium 4.0
Chloride 108 H
Carbon Dioxide 33 H
BUN 17
Creatinine 0.8
Glucose 97
Calcium 9.2
Vital Signs:
Vital Signs
Temp Pulse Resp BP Pulse Ox
97.8 F 78 16 146/65 93
09/16/24 08:40 09/16/24 09:00 09/16/24 08:40 09/16/24 08:28 09/16/24 08:40
I&O
09/15/24 09/16/24 09/17/24
06:59 06:59 06:59
Intake Total 120 / 120 480 / 480
Output Total 600 / 600
Balance 120 / 120 -120 / -120
--- NOTE | 2024-09-16 09:59 | PTCARENOTE ---
Pt has not ordered breakfast yet, he has wanted to sleep longer. He is A,A+OX3. He requested Xanax for anxiety, med with Xanax 1 mg PO as ordered. Skin care to areas of MASD then Desenex powder applied as ordered and Desenex clear ointment applied
to open areas as ordered.
--- NOTE | 2024-09-16 11:12 | PTCARENOTE ---
Report called to Pat on 1 acute, Pt transferred to 1 acute. Pt's notified of move to 1 acute.
--- NOTE | 2024-09-16 12:20 | RESPNOTE ---
patient wanted to make known his physicians downtown:
Alin Langar- pulmonary
[facility]- oncology
--- NOTE | 2024-09-16 14:10 | W.PN.CD ---
Today's Communication / Plan
-
Continue BB, we had considered dilt but to decrease potential drug interactions
Cardiology will sign off
Impression / Plan
-
Tachycardia, broke to sinus, in sinus now
- Not atrial flutter => I stopped Eliquis
- Tachycardia was SVT, a long R-P tachycardia. EPS would be need to determine if AT, atypical AVNRT, or slowly conducting posteroseptal bypass tract. No current indication for EPS/ablation
- No symptoms from tachycardia, not recurrent on telemetry so far
- Adding a non-dihydropyridine calcium channel falguni�(dilt/verapamil) if echo unremarkable, or a beta falguni if LV systolic dysfunction is present is appropriate
- If tachycardia becomes incessant or symptomatic despite meds then we can consider EPS/ablation although he not a great candidate for invasive treatment
HTN
At least a heavy drinker of ETOH
Former smoker
Morbid obesity, BMI 48
Ambulatory dysfunction
Subjective: No CP, palpitations, or dyspnea
Physical Exam
Vital Signs/Labs
Vital Signs
Temp Pulse Resp BP Pulse Ox
98 F 73 16 116/66 97
09/16/24 11:18 09/16/24 11:18 09/16/24 11:18 09/16/24 11:18 09/16/24 11:18
09/15/24 09/16/24 09/17/24
06:59 06:59 06:59
Actual Weight 128.7 kg
09/16/24 03:49
09/16/24 03:49
Magnesium 2.2 mg/dl (1.6-2.3) 09/16/24 03:49
Triglycerides 149 mg/dl (10-149) 09/15/24 04:18
LDL Cholesterol, Calc 105 mg/dl 09/15/24 04:18
VLDL Cholesterol, Calc 29 mg/dl (0-30) 09/15/24 04:18
HDL Cholesterol 49 mg/dl 09/15/24 04:18
TSH 1.43 uIU/ml (0.47-4.68) 09/15/24 04:18
09/15/24 09/16/24
04:18 03:49
Jqf-V-Gsynvrkcqyr Pept 534 866
LAB Results
09/14/24
01:40
Troponin I < 0.012
Physical Exam
Constitutional: No acute distress
EENT: Anicteric
Cardiovascular: Rhythm & rate is regular and Pedal edema is absent
Respiratory: Respiratory effort normal and Lungs clear to auscul.
GI: Soft and Distention absent
Neuro/Psych: AO x 3
Data Reviewed
-
Date of Service: September 16, 2024
--- NOTE | 2024-09-16 15:33 | CM ---
Met with patient and his at bedside
Discussed SNF as rec by PT
patient was open to the recommendation
Information/options on SNF given to patient, states he will think about SNF
discussed will need ins auth
CM to follow up with patient regarding SNF
PLAN: home with [facility] vs. SNF, CM to follow up with patient regarding SNF
[2024-09-16] MEDS: INDERAL 20 MG PO (20:24)
[2024-09-16] MEDS: THIAMINE INJECTION 200 MG IV (20:25)
--- NOTE | 2024-09-16 22:13 | RESPNOTE ---
Nocturnal started at 2200. Pt is on RA, SpO2 is 91%. Explained to pt why we are conducting this study, pt is not pleased about it. RN made aware. Pt told to not take off pulse ox until we do.
[2024-09-17] VITALS (8 sets, daily range): BP systolic 111–155; BP diastolic 69–86; PULSE 72–76; O2SAT 92; BMI 46.5
[2024-09-17] MEDS: LOVENOX 40 MG SC ×2 (08:45→20:01)
[2024-09-17] MEDS: VITAMIN D3 (cholecalciferol) 25 MCG PO (08:47)
[2024-09-17] MEDS: PAXIL 40 MG PO (08:47)
--- NOTE | 2024-09-17 08:47 | RESPNOTE ---
Home O2 assessment completed this morning.
pt laying down in bed 90% RA. pt assist x 2 to sit up, SpO2 93-94% RA.
patient attempted to ambulate with RW but only managed about 2-3 feet before stating he could not go on and wanted to return to sit. patient sat on bed then moved to chair, SPO2 96% on RA during this activity. end of assessment, RN updated.
[2024-09-17] MEDS: FOLVITE 1 MG PO (08:48)
[2024-09-17] MEDS: WELLBUTRIN XL (24 hour extended release) 150 MG PO (08:48)
[2024-09-17] MEDS: XANAX 1 MG PO ×3 (08:48→20:09)
[2024-09-17] MEDS: THIAMINE INJECTION 200 MG IV ×2 (08:48→20:01)
[2024-09-17] MEDS: ZESTRIL 20 MG PO (08:48)
[2024-09-17] MEDS: INDERAL 20 MG PO ×2 (08:48→20:01)
--- NOTE | 2024-09-17 08:57 | W.PN.HOSP.TC ---
Today's Communication/Plan
-
Medically stable for discharge pending SNF placement
Assessment / Plan
Assessment / Plan
Physical Exam
General: No Apparent Distress, appears relatively comfortable, morbidly obese
HEENT: Normocephalic
Respiratory: Clear; No Wheezes
Cardiac: Tachycardia
GI: Soft and Non Tender
Musculoskeletal: No Edema
Skin: Warm and Dry; No Rash
Neuro: AO x 3 conversant coherent
Psych: Calm
Assessment/Plan
73M with past medical history essential hypertension, anxiety and obesity presented to the emergency room for evaluation post a fall. Patient fell out of his chair and onto the floor while changing. He did not hit head or lose consciousness.
Patient couldn't get back into chair and so EMS was called. Patient stated he could usually walk around house with a walker. He denied chest pain or palpitations. No recent fevers/chills. No nausea/vomiting/diarrhea. No shortness of breath.
Atrial Flutter ruled out, determined to be SVT since resolved [correction to prior documentation]
-IVU admit since downgraded to Tele
-Continue newly started Metoprolol 25mg PO BID later switched to Propranolol given concern essential tremors as below
-Cardiology consult appreciated
-ECHO appreciated technically limited study Normal biventricular size and systolic function without regional wall motion
abnormality.
Hypoxic respiratory insufficiency
Suspect Obesity Hypoventilation syndrome vs LINSEY
-patient denies shortness of breath, likely related to atelectasis and body habitus
-weaned off O2, on room air during day.
-Nocturnal Oxygenation study appreciated patient likely will benefit 2L bedtime, oupt sleep study recommended
-home oxygen assessment limited as patient unable to ambulate very far, no significant desaturation noted otherwise
Essential Hypertension
-Cont Propranolol and Lisinopril w/ holding parameters
Anxiety
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
Hx ETOH use
monitor MSAS scores
Suspect Essential tremors
-started on propranolol
PT/OT appreciated SNF rehab patient initially refused, now agreeable
DVT Prophylaxis: Ric switched to Lovenox twice daily d/t obesity
Code Status: Full Code
Medically stable for discharge pending SNF placement
Discussed with patient and patient's Lu
I spent a total of 45 minutes with the patient or on the floor. More than 50% of this time involved counseling and coordination of care.
Anticipated Discharge: Within 24 hours
Subjective/Interval History
-
Date of Service: September 17, 2024
Seen and examined at bedside in no acute distress resting comfortably in bed. Overall reports feeling well. Lu present during evaluation.
Objective Data
-
Vital Signs:
Vital Signs
Temp Pulse Resp BP Pulse Ox
98.4 F 76 18 135/69 93
09/17/24 07:00 09/17/24 07:00 09/17/24 07:00 09/17/24 07:00 09/17/24 07:00
I&O
09/16/24 09/17/24 09/18/24
06:59 06:59 06:59
Intake Total 480 / 480 240 / 240
Output Total 600 / 600 150 / 150
Balance -120 / -120 90 / 90
[2024-09-17] MEDS: DESENEX/MITRAZOL/ZEASORB 1 APPLIC TOPICAL ×2 (09:08→20:03)
[2024-09-17] MEDS: ANTIFUNGAL CLEAR 1 APPLIC TOPICAL ×2 (09:09→20:03)
[2024-09-17] MEDS: TYLENOL 650 MG PO (10:55)
--- NOTE | 2024-09-17 11:43 | PN.CDI ---
CDI
- -
CDI:
Physician Documentation Request
Admit Date: 09/14/24 05:43
Dear Doctor Shahnaz,
Please review the following and provide your response in the progress notes.
Clinical Indicators:
- Patient initially admit due to atrial flutter - later ruled out
- 09/16 PN 'Atrial Flutter ruled out, determined to be NSVT'
- 09/16 Cardiology 'Not atrial flutter...Tachycardia was SVT, a long R-P tachycardia'
In an attempt to clarify potentially conflicting documentation, please clarify the arrhythmia on admission:
SVT
NSVT
Other (please specify)
Use of terms such as suspected, likely, concern for, or probable (associated with a specific diagnosis that is being evaluated, monitored, or treated as if it exists) are acceptable and can be coded in the inpatient setting, when documented at the
time of discharge.
Thank you,
Ximena Barth RN
CDI Specialist
Please use your independent medical judgment in providing your response.
--- NOTE | 2024-09-17 12:11 | CM ---
Addendum entered by Helen Churchill 09/17/24 12:13:
Of note, per WOC will need an air mattress at SNF
Original Note:
This health technical writer assisting CAM/Lolly with dc planning
Bedside meeting with pt and spouse
Encouraged consideration of SNF
Both pt and spouse in agreement
PAC provided; [facility] is 1st choice
[facility] and referrals sent and pending via [facility]
Pt will require auth
Discharge Disposition- SNF pending auth
--- NOTE | 2024-09-17 15:25 | TRANSFER ---
Received pt from [facility] via bed. Pt AAOX3. Pox: 95% RA. NSR on hospital monitor. Call alfonso within reach. Plan of care ongoing.
[2024-09-18] VITALS (7 sets, daily range): BP systolic 135–193; BP diastolic 73–116; BMI 45.8
[2024-09-18] MEDS: ANTIFUNGAL CLEAR 1 APPLIC TOPICAL ×2 (08:48→20:26)
[2024-09-18] MEDS: FOLVITE 1 MG PO (08:49)
[2024-09-18] MEDS: WELLBUTRIN XL (24 hour extended release) 150 MG PO (08:49)
[2024-09-18] MEDS: DESENEX/MITRAZOL/ZEASORB 1 APPLIC TOPICAL ×2 (08:49→20:25)
[2024-09-18] MEDS: INDERAL 20 MG PO ×3 (08:49→20:23)
[2024-09-18] MEDS: VITAMIN D3 (cholecalciferol) 25 MCG PO (08:50)
[2024-09-18] MEDS: LOVENOX 40 MG SC ×2 (08:50→20:25)
[2024-09-18] MEDS: PAXIL 40 MG PO (08:50)
[2024-09-18] MEDS: FLUSH (NSS) 2 FLUSH IV (08:51)
[2024-09-18] MEDS: THIAMINE INJECTION 200 MG IV ×2 (08:51→20:24)
[2024-09-18] MEDS: ZESTRIL 40 MG PO (08:51)
--- NOTE | 2024-09-18 09:02 | W.PN.HOSP.TC ---
Today's Communication/Plan
-
Maintain 2L at bedtime
Propanolol increased to 20 mg TID
Medically stable for discharge pending SNF placement
Assessment / Plan
Assessment / Plan
Physical Exam
General: No Apparent Distress, appears relatively comfortable, morbidly obese
HEENT: Normocephalic
Respiratory: Clear; No Wheezes
Cardiac: Tachycardia
GI: Soft and Non Tender
Musculoskeletal: No Edema
Skin: Warm and Dry; No Rash
Neuro: AO x 3 conversant coherent, tremors noted on outstretched hands improved
Psych: Calm
Assessment/Plan
73M with past medical history essential hypertension, anxiety and obesity presented to the emergency room for evaluation post a fall. Patient fell out of his chair and onto the floor while changing. He did not hit head or lose consciousness.
Patient couldn't get back into chair and so EMS was called. Patient stated he could usually walk around house with a walker. He denied chest pain or palpitations. No recent fevers/chills. No nausea/vomiting/diarrhea. No shortness of breath.
Atrial Flutter ruled out, determined to be SVT since resolved [correction to prior documentation]
-IVU admit since downgraded to Tele
-Continue newly started Metoprolol 25mg PO BID later switched to Propranolol given concern essential tremors as below
-Cardiology consult appreciated
-ECHO appreciated technically limited study Normal biventricular size and systolic function without regional wall motion
abnormality.
Hypoxic respiratory insufficiency
Suspect Obesity Hypoventilation syndrome vs LINSEY
-patient denies shortness of breath, likely related to atelectasis and body habitus
-weaned off O2, on room air during day.
-Nocturnal Oxygenation study appreciated patient likely will benefit 2L bedtime, oupt sleep study recommended
-home oxygen assessment limited as patient unable to ambulate very far, no significant desaturation noted otherwise
Essential Hypertension
-Cont Propranolol and Lisinopril w/ holding parameters
Anxiety
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
Hx ETOH use
monitor MSAS scores
Suspect Essential tremors
-started on propranolol titrated up to 20 mg TID
PT/OT appreciated SNF rehab patient initially refused, now agreeable
DVT Prophylaxis: Ric switched to Lovenox twice daily d/t obesity
Code Status: Full Code
Medically stable for discharge pending SNF placement
Discussed with patient and patient's Lu
I spent a total of 45 minutes with the patient or on the floor. More than 50% of this time involved counseling and coordination of care.
Anticipated Discharge: Within 24 hours
Subjective/Interval History
-
Date of Service: September 18, 2024
No acute distress, resting comfortably in bed. Lu present during evaluation. Overall reports feeling well, denies new acute issues at this time.
Objective Data
-
Vital Signs:
Vital Signs
Temp Pulse Resp BP Pulse Ox
97.5 F 80 14 162/90 91
09/18/24 07:49 09/18/24 07:49 09/18/24 07:49 09/18/24 07:55 09/18/24 07:49
I&O
09/17/24 09/18/24 09/19/24
06:59 06:59 06:59
Intake Total 240 / 240
Output Total 150 / 150
Balance 90 / 90
[2024-09-18] MEDS: SENOKOT-S 1 TABLET PO (09:07)
[2024-09-18] MEDS: XANAX 1 MG PO ×3 (09:07→21:32)
--- NOTE | 2024-09-18 16:26 | CM ---
Addendum entered by Felisa Larson RN 09/18/24 16:58:
notified of auth for snf obtained . said dc tomorrow.
Spoke with Cruzito at [place] she is aware of auth .
Medical nec form needed.
Original Note:
Insurance auth initiated with Felisa from [facility] NPI# [id number]
Dr Funes NPI# [id number]
Approved Skilled Rehab, Auth # [id number]
Start date today, NRD 09/22/24
updates to phone# [phone]
Ambulance auth with [facility] #[id number]
[facility]
Report# [phone]
[2024-09-19] VITALS (7 sets, daily range): BP systolic 125–158; BP diastolic 63–91; PULSE 84–85; O2SAT 92; BMI 45.1
[2024-09-19] MEDS: XANAX 1 MG PO ×3 (09:23→21:51)
[2024-09-19] MEDS: WELLBUTRIN XL (24 hour extended release) 150 MG PO (09:24)
[2024-09-19] MEDS: DESENEX/MITRAZOL/ZEASORB 1 APPLIC TOPICAL ×2 (09:24→20:01)
[2024-09-19] MEDS: PAXIL 40 MG PO (09:24)
[2024-09-19] MEDS: ANTIFUNGAL CLEAR 1 APPLIC TOPICAL ×2 (09:24→20:02)
[2024-09-19] MEDS: INDERAL 20 MG PO ×3 (09:25→21:51)
[2024-09-19] MEDS: ZESTRIL 40 MG PO (09:25)
[2024-09-19] MEDS: VITAMIN D3 (cholecalciferol) 25 MCG PO (09:26)
[2024-09-19] MEDS: FOLVITE 1 MG PO (09:26)
[2024-09-19] MEDS: LOVENOX 40 MG SC ×2 (09:26→20:02)
[2024-09-19] MEDS: THIAMINE INJECTION 200 MG IV (09:26)
--- NOTE | 2024-09-19 10:05 | W.PN.HOSP.TC ---
Today's Communication/Plan
-
Holding discharge SNF rehab for now, further monitoring respiratory status and blood pressure
likely discharge tomorrow if remains stable/cont to improve
Assessment / Plan
Assessment / Plan
Physical Exam
General: No Apparent Distress, appears relatively comfortable, morbidly obese
HEENT: Normocephalic
Respiratory: Clear; No Wheezes
Cardiac: Tachycardia
GI: Soft and Non Tender
Musculoskeletal: No Edema
Skin: Warm and Dry; No Rash
Neuro: AO x 3 conversant coherent, tremors on outstretched hands
Psych: Calm
Assessment/Plan
73M with past medical history essential hypertension, anxiety and obesity presented to the emergency room for evaluation post a fall. Patient fell out of his chair and onto the floor while changing. He did not hit head or lose consciousness.
Patient couldn't get back into chair and so EMS was called. Patient stated he could usually walk around house with a walker. He denied chest pain or palpitations. No recent fevers/chills. No nausea/vomiting/diarrhea. No shortness of breath.
Atrial Flutter ruled out, determined to be SVT since resolved [correction to prior documentation]
-IVU admit since downgraded to Tele
-Continue newly started Metoprolol 25mg PO BID later switched to Propranolol given concern essential tremors as below
-Cardiology consult appreciated
-ECHO appreciated technically limited study Normal biventricular size and systolic function without regional wall motion
abnormality.
Hypoxic respiratory insufficiency
Suspect Obesity Hypoventilation syndrome vs LINSEY
-patient denies shortness of breath, likely related to atelectasis and body habitus
-weaned off O2, on room air during day.
-Nocturnal Oxygenation study appreciated patient likely will benefit 2L bedtime, oupt sleep study recommended
-home oxygen assessment limited as patient unable to ambulate very far, no significant desaturation noted otherwise
Essential Hypertension
-Cont Propranolol and Lisinopril w/ holding parameters
Anxiety
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
Hx ETOH use
monitor MSAS scores
Suspect Essential tremors
-started on propranolol titrated up to 20 mg TID
PT/OT appreciated SNF rehab patient initially refused, now agreeable
DVT Prophylaxis: Ric switched to Lovenox twice daily d/t obesity
Code Status: Full Code
Holding discharge SNF rehab for now, further monitoring respiratory status and blood pressure
Discussed with patient and patient's Lu
I spent a total of 45 minutes with the patient or on the floor. More than 50% of this time involved counseling and coordination of care.
Anticipated Discharge: Within 24 hours
Subjective/Interval History
-
Date of Service: September 19, 2024
Patient anxious regarding blood pressure and requiring oxygen. Reassured oxygen is just for bedtime likely LINSEY. Suspect blood pressure elevation is likely related to anxiety
Objective Data
-
Vital Signs:
Vital Signs
Temp Pulse Resp BP Pulse Ox
97.5 F 76 18 158/54 96
09/19/24 07:35 09/19/24 09:25 09/19/24 07:35 09/19/24 09:25 09/19/24 07:35
I&O
09/18/24 09/19/24 09/20/24
06:59 06:59 06:59
Intake Total 400 / 400
Balance 400 / 400
--- NOTE | 2024-09-19 12:01 | CM ---
Addendum entered by Felisa Larson RN 09/19/24 17:36:
cancelled discharge. [facility]ito Juni aware . aware.
Original Note:
Spoke with Cruzito at [facility] she is aware of auth and accepted pt today .
Medical nec form completed Ambulance auth with [facility] #[id number]
Approved Skilled Rehab, Auth # [id number]
Start date today, NRD 09/22/24. updates to phone# [phone]
[facility]
Report# [phone]

PLAN to [facility]
[2024-09-19] MEDS: VITAMIN B1 100 MG PO (20:02)
[2024-09-19] MEDS: TYLENOL 650 MG PO (20:10)
[2024-09-20 03:19] VITALS: BP 103/50
[2024-09-20] MEDS: XANAX 1 MG PO ×3 (04:00→23:29)
[2024-09-20 06:00] VITALS: BMI 44.9
[2024-09-20 08:12] VITALS: BP 128/74
--- NOTE | 2024-09-20 08:27 | W.PN.HOSP.TC ---
Today's Communication/Plan
-
observe
Likely discharge SNF rehab tomorrow.
Assessment / Plan
Assessment / Plan
Physical Exam
General: No Apparent Distress, appears relatively comfortable, morbidly obese
HEENT: Normocephalic
Respiratory: Clear; No Wheezes
Cardiac: Tachycardia
GI: Soft and Non Tender
Musculoskeletal: No Edema
Skin: Warm and Dry; No Rash
Neuro: AO x 3 conversant coherent, tremors on outstretched hands
Psych: Calm
Assessment/Plan
73M with past medical history essential hypertension, anxiety and obesity presented to the emergency room for evaluation post a fall. Patient fell out of his chair and onto the floor while changing. He did not hit head or lose consciousness.
Patient couldn't get back into chair and so EMS was called. Patient stated he could usually walk around house with a walker. He denied chest pain or palpitations. No recent fevers/chills. No nausea/vomiting/diarrhea. No shortness of breath.
Atrial Flutter ruled out, determined to be SVT since resolved [correction to prior documentation]
-IVU admit since downgraded to Tele
-Continue newly started Metoprolol 25mg PO BID later switched to Propranolol given concern essential tremors as below
-Cardiology consult appreciated
-ECHO appreciated technically limited study Normal biventricular size and systolic function without regional wall motion
abnormality.
Hypoxic respiratory insufficiency
Suspect Obesity Hypoventilation syndrome vs LINSEY
-patient denies shortness of breath, likely related to atelectasis and body habitus
-weaned off O2, on room air during day.
-Nocturnal Oxygenation study appreciated patient likely will benefit 2L bedtime, oupt sleep study recommended
-home oxygen assessment limited as patient unable to ambulate very far, no significant desaturation noted otherwise
Essential Hypertension
-Cont Propranolol and Lisinopril w/ holding parameters
Anxiety
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
Hx ETOH use
monitor MSAS scores
Suspect Essential tremors
-started on propranolol titrated up to 20 mg TID
PT/OT appreciated SNF rehab patient initially refused, now agreeable
DVT Prophylaxis: Ric switched to Lovenox twice daily d/t obesity
Code Status: Full Code
Discussed with patient and patient's Lu
I spent a total of 45 minutes with the patient or on the floor. More than 50% of this time involved counseling and coordination of care.
Anticipated Discharge: Within 24 hours
Subjective/Interval History
-
Date of Service: September 20, 2024
No acute distress, appears comfortable at this time.
Objective Data
-
Vital Signs:
Vital Signs
Temp Pulse Resp BP Pulse Ox
98 F 67 20 128/74 99
09/20/24 08:12 09/20/24 08:12 09/20/24 08:12 09/20/24 08:12 09/20/24 08:12
I&O
09/19/24 09/20/24 09/21/24
06:59 06:59 06:59
Intake Total 400 / 400 480 / 480
Output Total 0 / 0
Balance 400 / 400 480 / 480
[2024-09-20] MEDS: ANTIFUNGAL CLEAR 1 APPLIC TOPICAL ×2 (09:56→22:18)
[2024-09-20] MEDS: DESENEX/MITRAZOL/ZEASORB 1 APPLIC TOPICAL ×2 (09:57→22:20)
[2024-09-20] MEDS: INDERAL 20 MG PO ×3 (09:57→22:19)
[2024-09-20] MEDS: WELLBUTRIN XL (24 hour extended release) 150 MG PO (09:58)
[2024-09-20] MEDS: VITAMIN B1 100 MG PO ×2 (09:58→22:19)
[2024-09-20] MEDS: FOLVITE 1 MG PO (09:58)
[2024-09-20] MEDS: PAXIL 40 MG PO (09:58)
[2024-09-20] MEDS: VITAMIN D3 (cholecalciferol) 25 MCG PO (09:58)
[2024-09-20] MEDS: ZESTRIL 40 MG PO (09:58)
[2024-09-20] MEDS: SENOKOT-S 1 TABLET PO (10:03)
[2024-09-20] MEDS: FLUSH (NSS) 1 FLUSH IV (10:03)
[2024-09-20] MEDS: MIRALAX 17 GRAMS PO (10:03)
[2024-09-20] MEDS: LOVENOX 40 MG SC ×2 (10:18→22:20)
[2024-09-20 11:52] VITALS: BP 121/70
--- NOTE | 2024-09-20 15:20 | CM ---
Patient with Dx SVT, Hypoxic respiratory insufficiency. O2 2L. PT/OT; requires assist of 2, recommend skilled rehab. Per nurse; A/O. Seen by wound care nurse.
Spoke with Daniel, [facility]; provided update that patient may be ready for d/c tomorrow. Per Daniel, they will be able to accept the patient tomorrow.
Spoke with patient's Lu; provided update that Dr Christie indicates patient will probably be ready for d/c to SNF tomorrow.
Plan probable d/c to [facility] tomorrow if medically ready.
[2024-09-20 15:35] VITALS: BP 152/86
[2024-09-20 18:57] VITALS: BP 127/74
[2024-09-20 23:19] VITALS: BP 132/71
[2024-09-21 03:56] VITALS: BP 124/72
[2024-09-21 04:06] VITALS: BMI 44.3
[2024-09-21 07:20] VITALS: BP 100/65
--- NOTE | 2024-09-21 08:00 | W.PN.HOSP.TC ---
Today's Communication/Plan
-
Discharge
Assessment / Plan
Assessment / Plan
Physical Exam
General: No Apparent Distress, appears relatively comfortable, morbidly obese
HEENT: Normocephalic
Respiratory: Clear; No Wheezes
Cardiac: Tachycardia
GI: Soft and Non Tender
Musculoskeletal: No Edema
Skin: Warm and Dry; No Rash
Neuro: AO x 3 conversant coherent, tremors on outstretched hands
Psych: Calm
Assessment/Plan
73M with past medical history essential hypertension, anxiety and obesity presented to the emergency room for evaluation post a fall. Patient fell out of his chair and onto the floor while changing. He did not hit head or lose consciousness.
Patient couldn't get back into chair and so EMS was called. Patient stated he could usually walk around house with a walker. He denied chest pain or palpitations. No recent fevers/chills. No nausea/vomiting/diarrhea. No shortness of breath.
Atrial Flutter ruled out, determined to be SVT since resolved [correction to prior documentation]
-IVU admit since downgraded to Tele
-Continue newly started Metoprolol 25mg PO BID later switched to Propranolol given concern essential tremors as below
-Cardiology consult appreciated
-ECHO appreciated technically limited study Normal biventricular size and systolic function without regional wall motion
abnormality.
Hypoxic respiratory insufficiency
Suspect Obesity Hypoventilation syndrome vs LINSEY
-patient denies shortness of breath, likely related to atelectasis and body habitus
-weaned off O2, on room air during day.
-Nocturnal Oxygenation study appreciated patient likely will benefit 2L bedtime, oupt sleep study recommended
-home oxygen assessment limited as patient unable to ambulate very far, no significant desaturation noted otherwise
Essential Hypertension
-Cont Propranolol and Lisinopril w/ holding parameters
Anxiety
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
Hx ETOH use
monitor MSAS scores
Suspect Essential tremors
-started on propranolol titrated up to 20 mg TID
PT/OT appreciated SNF rehab patient initially refused, now agreeable
DVT Prophylaxis: Lovenox twice daily d/t obesity
Code Status: Full Code
Medically stable for discharge SNF rehab with outpatient follow up recommendations.
Discussed with patient and patient's Lu
Total Time Preparing Discharge __40 minutes including examination of the patient, summary of the hospital stay, instructions for continuing care to all relevant caregivers; and preparation of discharge records, prescriptions, and referral
forms if necessary.
Anticipated Discharge: Today
Subjective/Interval History
-
Date of Service: September 21, 2024
Seen and examined at bedside in no acute distress resting comfortably in bed. Overall reports feeling well. Denies new acute issues at this time. Looking forward to Rehab.
Objective Data
-
Vital Signs:
Vital Signs
Temp Pulse Resp BP Pulse Ox
97.8 F 69 18 100/65 97
09/21/24 07:20 09/21/24 07:20 09/21/24 07:20 09/21/24 07:20 09/21/24 07:20
I&O
09/20/24 09/21/24 09/22/24
06:59 06:59 06:59
Intake Total 480 / 480 480 / 480
Output Total 0 / 0
Balance 480 / 480 480 / 480
[2024-09-21] MEDS: ANTIFUNGAL CLEAR 1 APPLIC TOPICAL (10:26)
[2024-09-21] MEDS: XANAX 1 MG PO (10:27)
[2024-09-21] MEDS: DESENEX/MITRAZOL/ZEASORB 1 APPLIC TOPICAL (10:27)
[2024-09-21] MEDS: PAXIL 40 MG PO (10:27)
[2024-09-21] MEDS: FOLVITE 1 MG PO (10:28)
[2024-09-21] MEDS: INDERAL 20 MG PO (10:28)
[2024-09-21] MEDS: VITAMIN B1 100 MG PO (10:28)
[2024-09-21] MEDS: WELLBUTRIN XL (24 hour extended release) 150 MG PO (10:28)
[2024-09-21] MEDS: SENOKOT-S 1 TABLET PO (10:28)
[2024-09-21] MEDS: ZESTRIL PO (10:29)
[2024-09-21] MEDS: MIRALAX 17 GRAMS PO (10:30)
[2024-09-21] MEDS: VITAMIN D3 (cholecalciferol) 25 MCG PO (10:30)
[2024-09-21] MEDS: FLUSH (NSS) 1 FLUSH IV (10:31)
[2024-09-21] MEDS: LOVENOX 40 MG SC (10:31)
[2024-09-21 11:05] VITALS: BP 126/74
--- NOTE | 2024-09-21 12:21 | W.DCSUMMARY ---
Discharge Summary
Discharge Data
Date of Admission: 09/14/24
Date of Discharge: 09/21/24
-
Pending Results: No
Discharge Plan
-
Patient Disposition: Usp/SNF
Discharge Diagnosis/Procedures: Atrial Flutter ruled out, determined to be SVT (supraventricular tachycardia) since resolved
Acute Hypoxic respiratory insufficiency
Suspect Obesity Hypoventilation syndrome vs Obstructive Sleep Apnea
Nocturnal Oxygenation study appreciated patient likely will benefit 2L bedtime
Essential Hypertension
Anxiety
History Alcohol Use
Essential tremors
Morbid Obesity
Condition: Fair
Diet: Regular
Activity: With assistance, As tolerated and With Walker
Driving Restrictions: Not until seen by your Dr
Bathing Restrictions: None
Blood Work: Repeat CBC and BMP with primary care provider in 1 week of discharge.
Others Tests: repeat Chest X-ray with primary care provider in 1 month of discharge.
Other Services: PT and OT
Wound Care: Abdominal/groin, axilla, anterior chest folds, affected areas-clean with Vashe wound cleanser or soap and water, miconazole powder to red skin folds, antifungal ointment to open areas, can add zinc barrier ointment after topical
antfungal for extra protection, perform twice a day. Tuck non woven gauze, ABD pad or cotton cloth in skin folds and change as needed for moisture.
L posterior lateral thigh small ulcers-clean with saline or Vashe wound cleanser, silicone border foam, change every 3 days and as needed for loosened dressing. If foam ineffective, apply zinc barrier ointment twice a day instead.
L inner thigh linear open area-zinc barrier ointment twice a day.
turning schedule
Air overlay or air mattress
turning schedule
Elevate heels off bed with pillows and/or air chair cushion
bariatric air chair cushion.
Activity Restrictions/Additional Instructions:
Follow up with primary care provider in 1 week of discharge.
Propranolol prescribed for tremors and for heart rate control.
Please take medications as prescribed/recommended and follow up with primary care provider and/or other healthcare provider involved in your care for refills and/or further adjustment to your medication regimen as necessary.
It is strongly advised that you abstain from further alcohol use as further usage will likely lead to worsening of your overall condition and increased risk morbidity/mortality.
Referrals:
[facility] [Outside]
Jorje Goode MD [Family Provider, [facility]] - in one week
Prescriptions:
New
Critic-Aid Clear AF(miconazol) 2 % Ointment
1 applic topical BID Qty: 1200 0RF
propranolol 20 mg Tablet
20 mg PO TID Qty: 90 0RF
Continued
paroxetine HCl 20 MG tablet
40 mg PO DAILY
lisinopril 40 MG tablet
40 mg PO DAILY
ibuprofen 200 MG tablet
200 mg PO Q4HPRN PRN (Reason: pain )
bupropion HCl 150 MG tablet extended release 24 hr
150 mg PO Daily
cholecalciferol (vitamin D3) [Vitamin D3] 25 mcg (1,000 unit) Tablet
25 mcg PO DAILY
alprazolam 1 MG tablet
1 mg PO TID PRN (Reason: anxiety) Qty: 10 0RF
Discharge Orders:
Discharge Patient (As Directed); Ordered 09/21/24
Ordered By: Megan Christie
Care Plan Goals
Care Plan Goals:
Problem: Readiness for enhanced knowledge related to diagnosis and treatment plan
Goal: Understand your diagnosis and treatment plan needs, including medications if applicable.
Instructions: Know your diagnosis, underlying causes and treatment plan options, including medications if applicable. Consult with your health care team to learn about your diagnosis and treatment plan, including medications if applicable.
Discharge Date and Time
Print Language: HUNGARIAN
--- NOTE | 2024-09-21 15:12 | CM ---
Patient with Dx SVT, Hypoxic respiratory insufficiency. O2 2L. PT/OT; requires assist of 2, recommend skilled rehab. Per nurse; A/O. Seen by wound care nurse.
Spoke with Daniel, [facility]; they are able to accept the patient today. The for report [phone], fax [phone]. Daniel was notified re; 3-3:30 transport time.
Met with patient & Lu; both agree to d/c to [facility] today. IMM completed.
Plan d/c to [facility] today by ambulance.
== END 2024-09-21 15:17 | DRG 309 ==
LOC: 4 EAST ACU 05:43
PROVIDERS: Physician Assistant; ADMITTING PHYSICIAN Student in an Organized Health Care Education/Training Program; ATTENDING PHYSICIAN Internal Medicine; CONSULT PHYSICIAN Internal Medicine; CONSULT PHYSICIAN Internal Medicine Cardiovascular Disease; EMERGENCY PHYSICIAN Emergency Medicine; FAMILY PHYSICIAN Family Medicine
DX: I47.10 Supraventricular tachycardia, unspecified (principal); E66.2 Morbid (severe) obesity with alveolar hypoventilation; J98.11 Atelectasis; Z68.42 Body mass index [BMI] 45.0-49.9, adult; R53.1 Weakness; I10 Essential (primary) hypertension; R09.02 Hypoxemia; F41.9 Anxiety disorder, unspecified; F17.200 Nicotine dependence, unspecified, uncomplicated; R06.89 Other abnormalities of breathing; G25.0 Essential tremor; G20.A1 Parkinson's disease without dyskinesia, without mention of fluctuations; R29.6 Repeated falls; F10.20 Alcohol dependence, uncomplicated; W07.XXXA Fall from chair, initial encounter; Y93.89 Activity, other specified; Y92.009 Unspecified place in unspecified non-institutional (private) residence as the place of occurrence of the external cause
CPT/HCPCS: 71045; 80048; 80053; 80061; 82550; 82607; 82746; 83036; 83735; 83880; 84100; 84443; 84484; 85025; 85027; 85379; 93005; 93306; 94762; 96360; 97163; 97167; 97530; 97535; 99285; Q9950

== ENCOUNTER 2024-11-09 15:13 | Observation (INO) | payer OTHER, SELFPAY ==
[2024-11-09 12:53] VITALS: BP 145/70
[2024-11-09 13:02] VITALS: BMI 47.6
[2024-11-09 13:17] LABS: Hematocrit 42.6 % (39.0-52.0); Hemoglobin 14.3 g/dL (13.0-18.0); Mean Corp Hgb Conc. 33.6 g/dL (33.0-37.0); Mean Corpuscular Volume 96.4 fL (80.0-94.0); Nucleated Red Blood Cells % 0 % (-); Platelet Count 255 10^3/uL (130-400); Red Cell Dist. Width 14.0 % (11.5-14.5)
[2024-11-09 13:40] LABS: ALT (SGPT) 14 U/L (0-50); AST (SGOT) 17 U/L (17-59); Albumin 3.6 g/dl (3.5-5.0); Alkaline Phosphatase 93 U/L (38-126); Blood Urea Nitrogen 6 mg/dl (9-20); Calcium 9.2 mg/dl (8.4-10.2); Carbon Dioxide 33 mmol/L (22-30); Chloride 98 mmol/L (98-107); Estimated Creatinine Clearance 120 ml/min; Glucose 112 mg/dl (70-99); Potassium 3.7 mmol/L (3.5-5.1); Sodium 135 mmol/L (135-145); Total Protein 6.1 g/dl (6.3-8.2); eGFR > 60.00
[2024-11-09 14:09] LABS: Urine Character Clear (Clear)
--- NOTE | 2024-11-09 14:18 | ED.GENMED ---
History of Present Illness
General
Chief Complaint: Failure to Thrive
Time Seen by Provider: 11/09/24 13:09
History of Present Illness
History of Present Illness:
74-year-old male presents to the emergency department for evaluation of failure to thrive. According to his spouse he has been laying in a recliner for at least the last 10 days and does not get up. He defecates into diapers. He was previously in
a rehab facility however signed himself out AGAINST MEDICAL ADVICE. Patient informs me that he does get up and walk and has been falling frequently but his spouse states that he has not been out of the chair and days. Patient offers a complaint of
left thigh discomfort. No reported fevers or chills.
Past History
Past History
ED Past Medical History: HTN and Psychiatric (Anxiety); Negative Asthma, Hypercholesterolemia or NIDDM
ED Past Surgical History: Orthopedic (back surgery 2016 x 2, rods and screws)
Social History
Tobacco: Smoker
Alcohol: Binge drinker (scotch)
Drug: None
Personal:
Living: with family
Employment: Not employed
Review of Systems
Review of Systems
Allergies reviewed?: Yes
All Other Systems: ROS reviewed and negative except as documented in HPI and ROS
Phy Exam
Physical Exam
Physical Exam:
GEN: Disheveled malodorous, morbidly obese, no immediate distress
HEENT: Oral mucosa moist, no scleral icterus
Cardiac: Regular rate
Lung: No respiratory distress, no tachypnea
MSK: No gross deformity or injuries
Skin: Good color, no pallor or jaundice, no rashes. Numerous pressure injuries to bilateral knees, left hip, and gluteal region with no significant skin breakdown
Neuro: Alert, oriented, tangential speech and difficult to redirect, moves all extremities freely however globally weak
Psych: Calm, cooperative
Course
Orders/Labs/Results
Orders:
Orders
11/09/24 Breakfast
Regular
At Your Request: Full Participation
Does patient need a safe tray?: No
11/09/24 13:07
CMP [Comprehensive Metabolic Panel] Urgent
Complete Blood Count/With Diff Urgent
Creatine Phosphokinase Urgent
Comment: ADD ON
Folate Urgent
Comment: ADD ON
Vitamin B12 Urgent
Comment: ADD ON
11/09/24 13:40
CR Femur - Left Min 2 Vw Urgent
Comment:
Reason For Exam: L thigh pain
11/09/24 13:58
Urinalysis Reflex To Culture Urgent
Date Specimen was Collected: 11/09/24
Time Specimen was Collected: 13:58
11/09/24 14:16
0.9% Sodium Chloride 1000 ml [Nss] 1,000 ml IV BOLUS
11/09/24 15:06
Admit/Transfer Patient As Directed
Co-Sign Provider:
Level of Care: Observation services
Assign to:: Medical/Surgical
Physician / Group: judi
Diagnosis: ambulatory dysfunction
PRN Pain Medication Management As Directed
May give lesser potent ordered pain med per pt: Yes
preference::
Protocol:: Medication orders for pain may be administered in a
manner that supports deferring to patient preference
when the pt is:
- Requesting an ordered lesser potent pain medication.
Least to most potent pain medications are defined
as: acetaminophen < NSAID < tramadol < opioids
(morphine, oxycodone, hydromorphone).
- Requesting a lesser dose of the same medication IF
ORDERED.
- Requesting a less intrusive route of administration
if both routes are prescribed by the provider (PO <
IV).
11/09/24 15:07
Code Status As Directed
Resuscitation Status: Full Code
11/09/24 16:59
Acetaminophen [Tylenol] 650 mg PO Q4HPRN PRN
Alprazolam [Xanax] 1 mg PO TID PRN anxiety
Bisacodyl [Dulcolax] 10 mg RECTAL [id number] PRN
Docusate W/Senna [Senokot-S] 1 tablet PO BIDPRN PRN
Polyethylene Glycol Powder [Miralax] 17 grams PO DAILYPRN PRN
Propranolol [Inderal] 20 mg PO TID
11/09/24 16:59
Activity As Directed
Activity Level: As Tolerated
Vital Signs As Directed
Frequency: Per unit guidelines
Pt Eval And Treat Routine
Activity Level: As Tolerated
DX Deep Vein Thrombosis Video Routine
11/09/24 18:00
Enoxaparin Sodium [Lovenox] 40 mg SC QPM
11/10/24 06:00
Complete Blood Count/No Diff IN AM
Occupational Therapy Consult [Ot Eval And Treat] IN AM
11/10/24 08:00
Bupropion(24Hr)Extended Releas [WELLBUTRIN XL (24 hour extended release)] 150 mg PO Daily
Lisinopril [Zestril] 40 mg PO DAILY
Paroxetine [Paxil] 40 mg PO DAILY
Abnormal Lab Results
11/09/24
13:07
WBC 14.2 H 10^3/uL
(4.8-10.8)
RBC 4.42 L 10^6/uL
(4.70-6.10)
MCV 96.4 H fL
(80.0-94.0)
MCH 32.4 H pg
(27.0-31.0)
MPV 10.8 H fL
(7.4-10.4)
Abs Immat Gran (auto) 0.1 H 10^3/uL
(0-0.05)
Absolute Neuts (auto) 11.2 H 10^3/uL
(1.4-6.5)
Absolute Monos (auto) 1.2 H 10^3/uL
(0.1-0.6)
Neutrophils % 78.7 H %
(42.2-75.2)
Lymphocytes % 9.3 L %
(20.5-51.1)
Carbon Dioxide 33 H mmol/L
(22-30)
BUN 6 L mg/dl
(9-20)
Glucose 112 H mg/dl
(70-99)
Creatine Kinase 20 L U/L
(55-170)
Total Protein 6.1 L g/dl
(6.3-8.2)
11/09/24 13:07
11/09/24 13:07
Vital Signs
Initial and Last Documented VS:
Initial Vital Signs
Pulse Resp Pulse Ox
79 16 96
11/09/24 12:52 11/09/24 12:52 11/09/24 12:52
Last Documented Vital Signs
Temp Pulse Resp BP Pulse Ox
98.3 F 71 18 137/85 95
11/09/24 17:00 11/09/24 18:09 11/09/24 17:00 11/09/24 18:09 11/09/24 17:00
MDM/Problems Addressed
MDM/Problems Addressed:
Patient is profoundly functionally debilitated and unable to ambulate under his own power. He will be admitted to the hospitalist service for further management
*Pulse Oximetry
SaO2: 96
Nasal Cannula flow liters per minute: 2
Oxygen Mode of Delivery: Room air
Patient hypoxic: no
*Critical Care Note
Total Time (30-74mins, 75-104mins- exclusive of procedures): Not Applicable
ED Attending Note
-
Portions of this chart may have been created with voice recognition software.� Occasional wrong word or��sound alike� substitutions may have occurred due to the inherent limitations of voice recognition software.
Discharge Plan
Departure
Patient Disposition: Admit
Date of Disposition: 11/09/24
Time of Disposition: 14:38
Admit to: Med/Surg
Presentation/result/management discussed w/ accepting MD/DO: Hospitalist
Discharge Problem:
Adult failure to thrive
Interventions
Interventions:
*General Assessment Last Done: 11/09/24 12:53
*Neglect/Abuse Screening Last Done: 11/09/24 12:53
*ED- Fall Risk Assessment Last Done: 11/09/24 13:02
*Nursing Disposition Last Done: 11/09/24 16:32
Discharge Date and Time
Discharge Date/Time: 11/09/24 16:32
[2024-11-09 14:21] VITALS: BP 147/67
[2024-11-09] MEDS: NSS 1000 IV (14:25)
--- NOTE | 2024-11-09 14:39 | HPS.HSE ---
Family Physician
-
Family Physician: Jorje Goode
Chief Complaint
-
failure to thrive
History of Present Illness
74-year-old male with PMH for anxiety, HTN,tremors presented to us with left hip radiating to his thigh for past few days. patient is recliner bound for past 10months. takes care of him at home. today he was complaining of worsening left hip
pain which prompted them to call 911. patient seemed confused for past few days. he was calling out for his mother and brother. he seemed depressed. he is slowly declining since his family many years ago. he was discharged to SNF for PT and
OT and he was not able to tolerate the PT. his knee scarped while the EMT persons were bringing him to the car. patient denied CERNA, dizzy or syncope. denied fever, chills, chest pain,sob. denied abdominal pain,n,v,d. denied dysuria or hematuria.
admitting for further management.
Medical History
Past Medical History
Past Medical History: Reports Other
Additional Past Medical History:
Anxiety, hypertension, sciatica, hyperlipidemia, irritable bowel disease, diverticulosis, colon polyps
Past Surgical History: Reports Other
Additional Past Surgical History:
Cyst removal
Social History
Tobacco: Former Smoker
Alcohol: Occasional
Drug: None
Personal:
Living: With Family
Family History
Family History: Not pertinent
Allergies / Home Medications
Allergies reflects when Allergies were last updated in [employer].
Home Medications with original date entered in [employer]
Allergy/Medication List:
Allergies
Allergy/AdvReac Type Severity Reaction Status Date / Time
No Known Allergies Allergy Verified 06/08/21 14:55
Home Medications
lisinopril 40 mg tablet 40 mg PO DAILY 11/17/15
paroxetine HCl 20 mg tablet 40 mg PO DAILY 11/17/15
bupropion HCl 150 mg 24 hr tablet, extended release 150 mg PO Daily 06/08/21
ibuprofen 200 mg tablet 200 mg PO Q4HPRN PRN pain 06/08/21
cholecalciferol (vitamin D3) 25 mcg (1,000 unit) tablet (Vitamin D3) 25 mcg PO DAILY 09/14/24
alprazolam 1 mg tablet 1 mg PO TID PRN anxiety #10 tabs 09/21/24
miconazole nitrate 2 % topical ointment (Critic-Aid Clear AF (miconazole)) 1 applic topical BID #1,200 grams 09/21/24
propranolol 20 mg tablet 20 mg PO TID #90 tabs 09/21/24
Review of Systems
-
Constitutional: Reports No Symptoms
EENT: Reports No Symptoms
Respiratory: Reports No Symptoms
Cardiac: Reports No Symptoms
Abdomen/GI: Reports No Symptoms
: Reports No Symptoms
Musculoskeletal: Reports Other (left hip pain)
Skin: Reports No Symptoms
Neurological: Reports No Symptoms
Endocrine: Reports No Symptoms
Hematologic/Lymphatic: Reports No Symptoms
Psych: Reports No Symptoms
Physical Exam
Vital Signs
Vital Signs
Temp Pulse Resp BP Pulse Ox
98.2 F 79 21 147/67 96
11/09/24 12:53 11/09/24 14:22 11/09/24 14:22 11/09/24 14:21 11/09/24 14:22
Physical Exam
General: Well Developed, Well Nourished and No Apparent Distress
HEENT: NormoCephalic, Moist mucous membranes and Atraumatic
Respiratory: Clear
Cardiac: S1/S2 and Regular Rhythm; No Murmur or Rub
GI: Soft, Non Tender, Non Distended and Normal Bowel Sounds; No Organomegaly
Rectal: Deferred by Provider
Musculoskeletal: No Clubbing, No Cyanosis and Other (left LE edema)
Skin: No Rash
Neuro: AO x 3 and Nonfocal/grossly intact
Psych: Calm
Laboratory Results
-
11/09/24 13:07
11/09/24 13:07
Laboratory Results
Total Bilirubin 1.2 mg/dl (0.2-1.3) 11/09/24 13:07
AST 17 U/L (17-59) 11/09/24 13:07
ALT 14 U/L (0-50) 11/09/24 13:07
Alkaline Phosphatase 93 U/L (38-126) 11/09/24 13:07
Data Reviewed
-
Lab Data: Labs Reviewed by me
Impression/Plan
-
# Failure to thrive likely from depression
#ambulatory dysfunction secondary secondary to obesity and left hip pain
- WBCs 14.0
- Femur x-ray pending
-CT of pelvic
-PT/OT,speech consulted
-psychiatry consulted
#metabolic encephalopathy unclear cause
-UA negative, wbc 14.0
-will obtain chest x ray
#chronic o2 dependant at home
-uses 2l at at baseline.
#Essential Hypertension
-Cont Propranolol and Lisinopril w/ holding parameters
#Anxiety
#possible depression
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
-psych consulted
#Suspect Essential tremors
- propranolol
DVT Prophylaxis: Lovenox
Code Status: Full Code
--- NOTE | 2024-11-09 15:38 | W.PN.UPDATE ---
Update Note
Progress Note Update
I saw and examined the patient.
The GUEST RELATION OFFICER Jair's note was reviewed and I agree with the note.
Comment: 74 y/o M, hx of anxiety, tremors, recent admission for Aflutter presents to ER at wifes behest due to immobility and now complaining of L hip pain with concern of bruise. states patient has been not thriving/functioning since his
father passed in 2014, and has worsened to the point of being completely recliner-bound for 2 years (in the interim his mother, younger brother and nephew also ). Most recently he was hospitalized in September for SVT and started on
Propranolol. He went to SNF ([facility]) but signed out AMA 10 days into rehab - has only progressed to in bed exercises. Denies any other complaints, no falls or injuries.
Patient admitted for FTT and placement.
Exam:
General: Well Developed, Morbidly Obese,
HEENT: Normocephalic, Moist mucous membranes and Atraumatic
Respiratory: Clear, no wheezing/rales/rhonchi
Cardiac: S1/S2 and Regular Rhythm; No Murmur or Rub
GI: Soft, Non Tender, Non Distended and Normal Bowel Sounds; No Organomegaly
Rectal: Deferred by Provider
Musculoskeletal: No Clubbing, No Cyanosis and Other (left LE edema, mild Hip bruise)
Skin: No Rash
Neuro: AO x 3 and Nonfocal/grossly intact
Psych: Calm, tearful, flat affect, depression features
Assessment:
FTT
Probable severe depression, hx of anxiety
- suspect mostly related to prolonged greiving process from familial deaths starting 2014 with father and prolonged, now progressed to severe depression
- lab evals: B12, Folate, TSH, B1
- Psych evaluation
- wean off Xanax - will seek psych guidance on taper schedule
- for now continue Bupropion/Paxil
Ambulatory dysfunction
L hip pain
- likely from immobility, prolonged sitting likely induced by FTT
- Risk factors include obesity/depression
- await X-rays, check Pelvic CT
- PT/OT
- pain control
Leukocytosis
- UA unremarkable
- check CXR
- monitor for infectious symptoms
Groin folds fungal rash
- nystatin powder
Chronic home O2 dependant
- wean O2 as able
Essential HTN
- continue BB/EDMAR
Essential tremors
- continue BB
DVT ppx: Lovenox
Code: Full
[2024-11-09 17:00] VITALS: BP 137/85; BMI 46.8
--- NOTE | 2024-11-09 17:00 | PTCARENOTE ---
Patient admitted to room 417-2 AAOx2-3. Bed alarm in place for safety. Sgtatic air mattress in place for preventative measure. Patient washed with bath wipes.
[2024-11-09 17:45] LABS: Folate 13.9 ng/ml (2.76-20); Vitamin B12 719 pg/ml (239-931)
[2024-11-09] MEDS: LOVENOX 40 MG SC (18:09)
[2024-11-09] MEDS: INDERAL 20 MG PO (18:09)
[2024-11-09] MEDS: MYCOSTATIN CREAM 1 APPLIC TOPICAL (21:19)
[2024-11-09] MEDS: DESENEX/MITRAZOL/ZEASORB 1 APPLIC TOPICAL (21:20)
[2024-11-09 23:43] VITALS: BP 138/71
[2024-11-10] MEDS: INDERAL 20 MG PO ×4 (00:35→21:30)
[2024-11-10 07:37] VITALS: BP 135/68
[2024-11-10 08:02] LABS: Hematocrit 41.2 % (39.0-52.0); Hemoglobin 13.6 g/dL (13.0-18.0); Mean Corp Hgb Conc. 33.0 g/dL (33.0-37.0); Mean Corpuscular Volume 97.2 fL (80.0-94.0); Platelet Count 226 10^3/uL (130-400); Red Cell Dist. Width 13.9 % (11.5-14.5)
[2024-11-10] MEDS: MYCOSTATIN CREAM 1 APPLIC TOPICAL ×2 (08:34→20:45)
[2024-11-10] MEDS: WELLBUTRIN XL (24 hour extended release) 150 MG PO (08:34)
[2024-11-10] MEDS: ZESTRIL 40 MG PO (08:34)
[2024-11-10] MEDS: PAXIL 40 MG PO (08:34)
--- NOTE | 2024-11-10 09:34 | PTOTSP ---
Speech Pathology
74M with admission for FTT and lt hip pain. Per chart, pt was demonstrating increased confusion at home. Recliner bound. Limited clinical swallow evaluation re: pt repeatedly refused solid consistencies. Did accept thin liquids with no overt s/s of
aspiration or penetration. Poor appetite with limited oral acceptance per RN. Aspiration risk is increased 2/2 AMS, non-ambulatory status, and CXR concerning for possible PNA.
Recommend:
1. Continue with regular textures, thin liquids; IF overt s/s of aspiration arise, make NPO and await speech re-evaluation
2. Meds as best tolerated
3. Aspiration and reflux precautions
4. FULL SUPERVISION
5. OPHTHALMOLOGIST service to follow up re: limited trials presented this date 2/2 pt with guarded oral acceptance of regular consistencies
--- NOTE | 2024-11-10 11:19 | CS.PSYCHR ---
Consult Summary - Psychiatry
-
Patient was seen by me on 11/10/2024 from 12:15pm-12:45pm
Psychiatry consult for worsening depression. Chart reviewed. 74 yo male with history of depression and anxiety as well as medical issues listed below admitted on 11/09/2024 for left hip pain and failure to thrive. Per chart, patient's condition has
been worsening since his father in 2014. He is now recliner bound. He also had loss of mother, brother and nephew during this time period. He recently signed out AMA from SNF due to inability to tolerate PT. Patient confirms the above.
He agrees that depression is contributing to his inability to properly care for himself or comply with treatments like PT. He denies suicidal ideations or wanting to give up. He is not under psychiatric care as an outpatient. He states his PCP
prescribes paroxetine 40mg daily, wellbutrin xl 150mg daily and xanax 1mg TID PRN. He states he has been on this regimen for a long time but is unable to give details. He says he uses xanax only a couple times a week. He denies manic or psychotic
history. He admits to a drinking history but says he hasn't had a drink in months.
I spoke with his of 44 years Lu in person extensively. She states Wellbutrin was started years ago for smoking cessation and that he no longer smokes. She does not think it did anything for his nerves and feels comfortable discontinuing it
so as to minimize risks of polypharmacy. She states he takes all three Xanax 1mg tablets every day and that he does not use it as a PRN. She reports a long history of binge alcohol drinking and states his most recent drink has been in the past
month. She states in the last 2-3 weeks he has been more confused and off from baseline.
We discussed option to add trial of low dose abilify to his medication regimen for better management of depression and went over the potential risks and benefits of the medication. Patient and are agreeable
PMH- HTN, tremors, sciatica, HLD, OBD, diverticulosis, colon polyps, obesity
Past psych- see above. no history of mental health issues prior to 2014. no hospitalizations. not under the care of a psychiatrist. no history of therapy
D&A- history of significant alcohol use with binging
Family history- mom with depression/anxiety
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 lives with . no children. would go out binge drinking with friends a lot
A/P- 74 yo male with unspecified depression, anxiety, and alcohol use disorder. Will stop wellbutrin since indication was smoking cessation (patient no longer a smoker) and it has not improved mood. Will continue paroxetine 40mg daily for now and
add Abilify 2mg daily to regimen. Will check EKG for Qtc monitoring. Can continue xanax for now with plan to start slow taper once adjusted to abilify. Patient and aware of fall and confusion risk particularly in this patient population. Long
term goal will be discontinuation. Would consider head imaging if not already done given history of chronic alcohol use and risk for brain changes/cognitive deficits over time. Psychiatry will follow.
--- NOTE | 2024-11-10 11:30 | PTCARENOTE ---
Tap water enema administered. Well tolerated by patient.
--- NOTE | 2024-11-10 11:34 | W.PN.HOSP.TC ---
Today's Communication/Plan
-
PT/OT
Psych
Assessment / Plan
Assessment / Plan
Assessment:
FTT
Probable severe depression, hx of anxiety
- suspect mostly related to prolonged greiving process from familial deaths starting 2014 with father and prolonged, now progressed to severe depression
- lab evals: B1 pending. Normal B2, Folate, TSH
- Psych evaluation
- wean off Xanax - will seek psych guidance on taper schedule
- for now continue Bupropion/Paxil
Ambulatory dysfunction
L hip pain
- likely from immobility, prolonged sitting likely induced by FTT
- Risk factors include obesity/depression
- Xray: Moderate bilateral hip osteoarthritis
- PT/OT pending
- pain control
Leukocytosis
- UA unremarkable
- CXR: Probable small left pleural effusion. Stable. Underlying pneumonia cannot be excluded.
- monitor for infectious symptoms
Groin folds fungal rash
- nystatin powder
Chronic home O2 dependant
- wean O2 as able
Essential HTN
- continue BB/EDMAR
Essential tremors
- continue BB
DVT ppx: Lovenox
Code: Full
Anticipated Discharge: > 48 hours
Subjective/Interval History
-
Date of Service: November 10, 2024
resting, no complaints
Objective Data
-
Labs:
Laboratory Results
11/10/24
06:52
WBC 9.2
Hgb 13.6
Hct 41.2
Plt Count 226
Vital Signs:
Vital Signs
Temp Pulse Resp BP Pulse Ox
98.6 F 76 20 135/68 91
11/10/24 07:37 11/10/24 07:37 11/10/24 07:37 11/10/24 07:37 11/10/24 07:37
I&O
11/09/24 11/10/24 11/11/24
06:59 06:59 06:59
Intake Total 100 / 100
Balance 100 / 100
Physical Exam
-
General: No Apparent Distress
HEENT: Normocephalic and Atraumatic
Respiratory: Negative Wheezes
Cardiac: Regular Rhythm and S1/S2
GI: Soft
Genito-urinary: No Costovertebral Tender
Neuro: AO x 3
Psych: Calm
Data Reviewed
-
Total Time Spent with Patient (in minutes): 41
Labs: Labs Reviewed by me
[2024-11-10 11:35] VITALS: BP 105/68
[2024-11-10 15:10] VITALS: BP 144/79
--- NOTE | 2024-11-10 17:35 | W.PN.UPDATE ---
Update Note
Progress Note Update
provided advanced directives stating DNR status - orders updated
[2024-11-10] MEDS: LOVENOX 40 MG SC (17:40)
[2024-11-10] MEDS: XANAX 1 MG PO (20:44)
[2024-11-10 23:02] VITALS: BP 144/83
[2024-11-11 07:19] VITALS: BP 144/83
[2024-11-11 07:58] LABS: Hematocrit 41.7 % (39.0-52.0); Hemoglobin 13.8 g/dL (13.0-18.0); Mean Corp Hgb Conc. 33.1 g/dL (33.0-37.0); Mean Corpuscular Volume 96.1 fL (80.0-94.0); Platelet Count 235 10^3/uL (130-400); Red Cell Dist. Width 13.5 % (11.5-14.5)
[2024-11-11 08:31] LABS: Blood Urea Nitrogen 5 mg/dl (9-20); Calcium 9.1 mg/dl (8.4-10.2); Carbon Dioxide 34 mmol/L (22-30); Chloride 101 mmol/L (98-107); Estimated Creatinine Clearance > 125 ml/min; Glucose 99 mg/dl (70-99); Potassium 4.3 mmol/L (3.5-5.1); Sodium 137 mmol/L (135-145); eGFR > 60.00
--- NOTE | 2024-11-11 09:11 | VNURNOTE ---
Chart reviewed. Patient is current with [facility]. Will continue to follow hospital course and DC plans.
[2024-11-11 09:43] VITALS: BP 172/87; PULSE 78; O2SAT 94
[2024-11-11 09:44] VITALS: BP 172/87; PULSE 74; O2SAT 94
[2024-11-11] MEDS: ZESTRIL 40 MG PO (10:09)
[2024-11-11] MEDS: ABILIFY 2 MG PO (10:10)
[2024-11-11] MEDS: INDERAL 20 MG PO ×2 (10:10→16:54)
[2024-11-11] MEDS: PAXIL 40 MG PO (10:10)
[2024-11-11] MEDS: DESENEX/MITRAZOL/ZEASORB 1 APPLIC TOPICAL (10:16)
[2024-11-11] MEDS: MYCOSTATIN CREAM 1 APPLIC TOPICAL ×2 (10:17→21:15)
[2024-11-11] MEDS: XANAX 1 MG PO (10:38)
--- NOTE | 2024-11-11 14:02 | W.PN.HOSP.TC ---
Today's Communication/Plan
-
change to inpatient level
await psych evaluation
Assessment / Plan
Assessment / Plan
FTT
Probable severe depression, hx of anxiety
- suspect mostly related to prolonged grieving process from familial deaths starting 2014 with father and prolonged, now progressed to severe depression
- Psych evaluation
- on Bupropion/Paxil
Acute toxic metabolic encephalopathy
- Baseline unknown
- B12/folate within normal limit. Check TSH
- On Xanax 1 mg 3 times daily, PDMP reviewed. May require dose adjustment. Psych evaluation pending
- Potential differential of mild cognitive impairment/dementia
Ambulatory dysfunction
L hip pain
- likely from immobility, prolonged sitting likely induced by FTT
- Risk factors include obesity/depression
- Xray: Moderate bilateral hip osteoarthritis
- PT/OT evaluated and needs rehab placement
- pain control
Leukocytosis -resolved
- UA unremarkable
- CXR: Probable small left pleural effusion. Stable. Underlying pneumonia cannot be excluded.
- monitor for infectious symptoms
Groin folds fungal rash
- nystatin powder
Chronic home O2 dependant
- wean O2 as able
Essential HTN
- continue BB/EDMAR
Essential tremors
- continue BB
DVT ppx: Lovenox
Code: Full
Anticipated Discharge: 24 - 48 hours
Subjective/Interval History
-
Date of Service: November 11, 2024
Patient disoriented at times
Reported seen by the nurse overnight
On oxygen through nasal cannula
No other acute issues reported
Objective Data
-
Labs:
Laboratory Results
11/11/24
07:07
WBC 8.2
Hgb 13.8
Hct 41.7
Plt Count 235
Sodium 137
Potassium 4.3
Chloride 101
Carbon Dioxide 34 H
BUN 5 L
Creatinine 0.6 L
Glucose 99
Calcium 9.1
Vital Signs:
Vital Signs
Temp Pulse Resp BP Pulse Ox
99 F 76 22 144/83 95
11/11/24 07:19 11/11/24 07:19 11/11/24 07:19 11/11/24 07:19 11/11/24 07:19
I&O
11/10/24 11/11/24 11/12/24
06:59 06:59 06:59
Intake Total 100 / 100 920 / 920
Balance 100 / 100 920 / 920
Review of Systems
-
Respiratory: Reports No Symptoms
Cardiac: Reports No Symptoms
Abdomen/GI: Reports No Symptoms
Physical Exam
-
General: Negative Respiratory Distress
HEENT: Oxygen
Neuro: Awake, Alert and No Motor Deficits; Negative Oriented
[2024-11-11 15:43] LABS: TSH 0.50 uIU/ml (0.47-4.68)
[2024-11-11 15:59] VITALS: BP 168/79
--- NOTE | 2024-11-11 16:08 | CM ---
Addendum entered by Haile Lepe 11/11/24 16:25:
Psych consulted for depression and is following at this time
Original Note:
Patient seen bedside, initial assessment completed. Patient is a 74-year-old male with PMH for anxiety, HTN,tremors presented to us with left hip radiating to his thigh for past few days. patient is recliner bound for past 10months. takes care
of him at home.
Patient resides w/ spouse in a 2STH, no steps to enter from the outside. Patient is independent w/ RW and cane, has home O2 patient says he uses at night, has several grab bars and a shower chair. Reviewed chart from previous admission, stair glide
to each level of the home. Independent w/ ADLs, spouse cooks meals. Patient was at [facility] month. Had [facility] in the past. Current w/ [facility].
Address, point of contact and insurance verified
PCP: Jojre Goode
Pharmacy: [facility]
Patient admitted obs. [facility] form verbally reviewed, copy provided, copy on chart
CM received a call from [employer] worker Jair in response to a report that was made for patient. CM did not make the report. Jair informed CM that spouse has been having issues managing and caring for patient in the home. Patient is referencing
family members as if they are alive still. Jair has concerns that patient's home is not appropriate as the stair glides are not working right now. Jair discussed w/spouse about the possibility of SNF, short term w/ transition into LTC.
Therapy rec SNF at d/c. Discussed w/ patient who stated he will have to discuss w/ his
Plan: SNF recommended. Possible LTC placement
[2024-11-11] MEDS: LOVENOX 40 MG SC (16:54)
[2024-11-11] MEDS: INDERAL PO (22:04)
[2024-11-11 23:10] VITALS: BP 118/55
--- NOTE | 2024-11-11 23:14 | W.PN.UPDATE ---
Update Note
Progress Note Update
pt seen this afternoon to assess progress with medication changes. He states he is anxious, though not especially depressed. Confused at times, unable to name president intially, was never able to name general service technician. States he is able to walk to
bathroom, which appears to be untrue. At one point tells me that he works here, that he is only in the bed because someone told him he could stay in it until he was able to get a ride home.
Will see how he does with only prn xanax; if he can tolerate it would be better off without
May need to be on antipsychotic meds at low dose, will see again tomorrow
[2024-11-12 06:51] LABS: Hematocrit 41.3 % (39.0-52.0); Hemoglobin 13.6 g/dL (13.0-18.0); Mean Corp Hgb Conc. 32.9 g/dL (33.0-37.0); Mean Corpuscular Volume 98.1 fL (80.0-94.0); Platelet Count 253 10^3/uL (130-400); Red Cell Dist. Width 14.0 % (11.5-14.5)
[2024-11-12 07:15] VITALS: BP 162/84
[2024-11-12 07:24] LABS: Blood Urea Nitrogen 11 mg/dl (9-20); Calcium 9.1 mg/dl (8.4-10.2); Carbon Dioxide 35 mmol/L (22-30); Chloride 99 mmol/L (98-107); Estimated Creatinine Clearance 119 ml/min; Glucose 106 mg/dl (70-99); Potassium 3.9 mmol/L (3.5-5.1); Sodium 139 mmol/L (135-145); eGFR > 60.00
[2024-11-12] MEDS: XANAX 1 MG PO (09:31)
[2024-11-12] MEDS: ZESTRIL 40 MG PO (09:31)
[2024-11-12] MEDS: PAXIL 40 MG PO (09:31)
[2024-11-12] MEDS: ABILIFY 2 MG PO (09:32)
[2024-11-12] MEDS: INDERAL 20 MG PO ×3 (09:32→21:21)
[2024-11-12] MEDS: DESENEX/MITRAZOL/ZEASORB 1 APPLIC TOPICAL (09:33)
[2024-11-12] MEDS: MYCOSTATIN CREAM 1 APPLIC TOPICAL ×2 (09:34→19:52)
--- NOTE | 2024-11-12 13:04 | W.PN.UPDATE ---
Update Note
Progress Note Update
patient seen chart reviewed. spoke with nursing dr calderon aviles. was at bedside. patient has had periods of confusion i am told but when i saw him today he was [facility]
[place] and exactly to time. we were talking about his meds and he interjected appropriately that he had been told many times NOT to dc xanax appropriately. says he was in his normal state of mind prior to october 17 when he became
intermittently confused. she sees him today as better although still at times a bit confused. reviewed meds with them including interactions adverse effects and indications. wellbutrin dc'ed bc was for smoking cessation and he does not smoke.
paxil was prescribed for depression. it has anticholinergic effects which could cause confusion but he was on it for years. of course mixed with other meds the effects could change. i am going to dc abilifky. see no need at present and abilify and
its level is inc by paxil. xanax he has taken for several months at one mg tid dosage . he had taken it prn prior. will order o.5 mg qid for now and monitor response. hold for sedation. also a prn for one extra dose (the idea is decrease of o.5
every week) he did not look as thought he was in any acute wd bp 162/84 153/90 ie on the high side pulse okay. tsh and free t4 are normal. noted cat scan w atrophy and old stroke ? would an mri and /or neuro consult be worthwhile to look for
a reason for what noted after october 17. will follow
--- NOTE | 2024-11-12 14:52 | W.PN.HOSP.TC ---
Today's Communication/Plan
-
Monitor for improvement of encephalopathy
Eventual rehab
Assessment / Plan
Assessment / Plan
FTT
Probable severe depression, hx of anxiety
- suspect mostly related to prolonged grieving process from familial deaths starting 2014 with father and prolonged, now progressed to severe depression
- Psych evaluation
- on Bupropion/Paxil
Acute toxic metabolic encephalopathy - Improving
- Baseline unknown, - Potential differential of mild cognitive impairment/dementia
- B12/folate within normal limit. Check TSH
- Psychiatry evaluated and adjusted Xanax dose with plan of slow to bring of 1 video visit
Ambulatory dysfunction
L hip pain - resolved
- likely from immobility, prolonged sitting likely induced by FTT
- Risk factors include obesity/depression
- Xray: Moderate bilateral hip osteoarthritis
- PT/OT evaluated and needs rehab placement
- pain control
Leukocytosis -resolved
- UA unremarkable
- CXR: Probable small left pleural effusion. Stable. Underlying pneumonia cannot be excluded.
- monitor for infectious symptoms
Groin folds fungal rash
- nystatin powder
Chronic home O2 dependant
- wean O2 as able
Essential HTN
- continue BB/EDMAR
Essential tremors
- continue BB
DVT ppx: Lovenox
Code: Full
Anticipated Discharge: Within 24 hours
Subjective/Interval History
-
Date of Service: November 12, 2024
better oriented
no acute events reported
Objective Data
-
Labs:
Laboratory Results
11/12/24
06:14
WBC 8.1
Hgb 13.6
Hct 41.3
Plt Count 253
Sodium 139
Potassium 3.9
Chloride 99
Carbon Dioxide 35 H
BUN 11
Creatinine 0.7
Glucose 106 H
Calcium 9.1
Vital Signs:
Vital Signs
Temp Pulse Resp BP Pulse Ox
97.8 F 76 16 162/84 97
11/12/24 07:15 11/12/24 07:15 11/12/24 07:15 11/12/24 07:15 11/12/24 07:15
I&O
11/11/24 11/12/24 11/13/24
06:59 06:59 06:59
Intake Total 920 / 920 960 / 960
Balance 920 / 920 960 / 960
Review of Systems
-
Respiratory: Reports No Symptoms
Cardiac: Reports No Symptoms
Abdomen/GI: Reports No Symptoms
Physical Exam
-
General: Negative Respiratory Distress
HEENT: Oxygen
Neuro: Awake, Alert, Oriented and No Motor Deficits
[2024-11-12 15:15] VITALS: BP 131/60
[2024-11-12] MEDS: XANAX 0.5 MG PO ×2 (17:05→21:17)
[2024-11-12] MEDS: LOVENOX 40 MG SC (17:06)
[2024-11-12 23:32] VITALS: BP 152/90
[2024-11-13 08:23] LABS: Hematocrit 42.1 % (39.0-52.0); Hemoglobin 13.7 g/dL (13.0-18.0); Mean Corp Hgb Conc. 32.5 g/dL (33.0-37.0); Mean Corpuscular Volume 98.4 fL (80.0-94.0); Platelet Count 229 10^3/uL (130-400); Red Cell Dist. Width 13.7 % (11.5-14.5)
[2024-11-13 08:41] VITALS: BP 172/80
[2024-11-13] MEDS: PAXIL 40 MG PO (08:50)
[2024-11-13] MEDS: XANAX 0.5 MG PO ×4 (08:50→21:28)
[2024-11-13] MEDS: ZESTRIL 40 MG PO (08:50)
[2024-11-13] MEDS: INDERAL 20 MG PO ×3 (08:50→21:28)
[2024-11-13] MEDS: MYCOSTATIN CREAM 1 APPLIC TOPICAL ×2 (08:51→19:23)
[2024-11-13 09:00] LABS: Blood Urea Nitrogen 13 mg/dl (9-20); Calcium 9.3 mg/dl (8.4-10.2); Carbon Dioxide 37 mmol/L (22-30); Chloride 98 mmol/L (98-107); Estimated Creatinine Clearance 119 ml/min; Glucose 99 mg/dl (70-99); Potassium 4.0 mmol/L (3.5-5.1); Sodium 139 mmol/L (135-145); eGFR > 60.00
--- NOTE | 2024-11-13 09:46 | W.PN.UPDATE ---
Update Note
Progress Note Update
received message from pharmacy that the 0.5 mg daily which i DID PUT IN as a prn was recorded as a brian order and he was given one mg this am. this is not what i ordered. this has happened before that i put in a prn order amending the daily order
and it recorda as scheduled. have canceled to o.5 prn daily order and left the o.[address] for now. will see him shortly. hold xanax for sedation.
--- NOTE | 2024-11-13 10:13 | CM ---
Chart reviewed. CM spoke w/ patient's spouse to review a possible d/c plan for patient as there are concerns about spouse unable to manage care for patient at home. CM shared that therapy is recommending SNF at this time. Spouse stated that patient
is not independent at home, requires assistance. Spouse appeared overwhelmed as she does not know what to do or what plan would be best for patient. Spouse aware that [employer] is involved and has concerns about patient returning home. Spouse stated
they do not have a lot of money and would need to know how much LTC would cost as CM made her aware that LTC is private pay for room and board. CM informed spouse that some facilities will require a financial application and it would have to further
be reviewed by their business office. Spouse also thinking to take patient home w/ some services. At this time, spouse is undecided about a plan for patient but understands that once patient is stable for d/c there needs to be a plan. Spouse stated
she will think about it and speak w/ CM later when she comes to the hospital.
--- NOTE | 2024-11-13 11:25 | W.PN.HOSP.TC ---
Today's Communication/Plan
-
Mentation improved
Discharge planning for SNF rehab
Assessment / Plan
Assessment / Plan
FTT
Probable severe depression, hx of anxiety
- suspect mostly related to prolonged grieving process from familial deaths starting 2014 with father and prolonged, now progressed to severe depression
- Psych evaluation
- on Bupropion/Paxil
Acute toxic metabolic encephalopathy - Improved
- Baseline unknown, - Potential differential of mild cognitive impairment/dementia
- B12/folate within normal limit. TSH/FT4 wnl .
- Psychiatry evaluated and adjusted Xanax dose with plan of slow taper
Ambulatory dysfunction
L hip pain - resolved
- likely from immobility, prolonged sitting likely induced by FTT
- Risk factors include obesity/depression
- Xray: Moderate bilateral hip osteoarthritis
- PT/OT evaluated and needs rehab placement
- pain control
Leukocytosis -resolved
- UA unremarkable
- CXR: Probable small left pleural effusion. Stable. Underlying pneumonia cannot be excluded.
- monitor for infectious symptoms
Groin folds fungal rash
- nystatin powder
Chronic home O2 dependant
- wean O2 as able
Essential HTN
- continue BB/EDMAR
Essential tremors
- continue BB
DVT ppx: Lovenox
Code: Full
Anticipated Discharge: Within 24 hours
Subjective/Interval History
-
Date of Service: November 13, 2024
Subjective doing better
Patient coherent and communicating meaningful way
Objective Data
-
Labs:
Laboratory Results
11/13/24
06:45
WBC 6.0
Hgb 13.7
Hct 42.1
Plt Count 229
Sodium 139
Potassium 4.0
Chloride 98
Carbon Dioxide 37 H
BUN 13
Creatinine 0.7
Glucose 99
Calcium 9.3
Vital Signs:
Vital Signs
Temp Pulse Resp BP Pulse Ox
97.9 F 71 16 172/80 98
11/13/24 08:41 11/13/24 08:41 11/13/24 08:41 11/13/24 08:41 11/13/24 09:01
I&O
11/12/24 11/13/24 11/14/24
06:59 06:59 06:59
Intake Total 960 / 960 750 / 750
Balance 960 / 960 750 / 750
Review of Systems
-
Respiratory: Reports No Symptoms
Cardiac: Reports No Symptoms
Abdomen/GI: Reports No Symptoms
Physical Exam
-
General: Negative Respiratory Distress
HEENT: Oxygen
Neuro: Awake, Alert, Oriented and No Motor Deficits
[2024-11-13] MEDS: XANAX PO (12:26)
--- NOTE | 2024-11-13 14:23 | W.PN.UPDATE ---
Update Note
Progress Note Update
patient seen chart reviewed. discussed with nursing. spoke with cm. at bedside. attempted to see patient around noon but he was sleeping presumably bc he received one mg xanax this am. this was not intended. see my previous note. he is
awake and alert at present and for the most part carried on a reasonable conversation with me and his . said she is happy with his improvement although still has moments where he is somewhat confused. eg he will suddenly ask her when she
is leaving for work when she has not worked in about twenty years. today there was one moment where he told me about a [employer] program he had seen which was definitely a non sequitur. he was however also able to engage in some
reasonable discussion about his illness...eg why does he need oxygen, the advisability of snf to regain some strength and fitness. we also discussed that he had left snf prematurely last time and this time i advised him to LISTEN TO HIS . he
did agree to do so. for today the one pm dose of xanax was held. he will get one more dose tonight. tomorrow am he will get a dose and then psych coverage tomorrow dr mancera can decide whether to further decrease xanax to bid or hold for another
few days.
[2024-11-13 16:06] VITALS: BP 156/77
[2024-11-13] MEDS: LOVENOX 40 MG SC (17:17)
[2024-11-13 18:12] LABS: Vitamin B1, Whole Blood 197 nmol/L (70-180)
[2024-11-13 23:00] VITALS: BP 140/67
[2024-11-14 07:10] VITALS: BP 143/79
--- NOTE | 2024-11-14 09:26 | CM ---
Addendum entered by Haile Lepe 11/14/24 16:23:
Received call from [facility], no beds available over the weekend
Spoke w/ Catherine/[facility] director, able to offer patient a bed tomorrow
Called [phone] to obtain auth. Spoke w/ Erna, auth approved beginning tomorrow, 11/15 next review date is 11/19
Auth reference number [id number]
Ambulance auth approved for [facility] beginning tomorrow. Forms on chart
Amb Reference number [id number]
Updated hospitalist
Updated patient and spouse
[facility]
Report: [phone]

Plan: D/c to [facility] tomorrow
Addendum entered by Haile Lepe 11/14/24 15:07:
CM spoke w/ spouse and after reviewing list w/ patient, spouse identified [facility] and [facility]. Spouse prefers [facility] as the first choice.
CM placed referrals in [facility]. Spoke w/ [facility] admissions, will review referral and bed availability and give CM a call back
Original Note:
CM called patient's spouse as a follow up from previous conversation regarding a d/c plan for patient. Chart indicated that patient's mentation has improved, psychiatrist has shared improvement from patient. Spouse stated she witnessed patient
sitting in the chair and getting back in bed with some assistance which is more than he typically does at home. Spouse stated she is agreeable for STR for patient and for him to d/c home afterwards. Spouse stated patient doesn't want to return where
he was previously at, spouse agreeable to other facilities in or near [place]. Spouse mentioned [facility] as she has friends that live there but don't know how their rehab is. Spouse requested for CM to provide a SNF list at patient's bedside and
will review when she comes to the hospital.
Plan: SNF
[2024-11-14] MEDS: INDERAL 20 MG PO ×3 (09:46→21:21)
[2024-11-14] MEDS: ZESTRIL 40 MG PO (09:47)
[2024-11-14] MEDS: XANAX 0.5 MG PO ×3 (09:47→19:35)
[2024-11-14] MEDS: MYCOSTATIN CREAM 1 APPLIC TOPICAL ×2 (09:47→19:35)
[2024-11-14] MEDS: PAXIL 40 MG PO (09:47)
--- NOTE | 2024-11-14 11:11 | W.PN.HOSP.TC ---
Today's Communication/Plan
-
medically stable for snf discharge
Assessment / Plan
Assessment / Plan
FTT
Probable severe depression, hx of anxiety
- suspect mostly related to prolonged grieving process from familial deaths starting 2014 with father and prolonged, now progressed to severe depression
- Psych evaluation
- on Bupropion/Paxil
Acute toxic metabolic encephalopathy - Improved
- Baseline unknown, - Potential differential of mild cognitive impairment/dementia
- B12/folate within normal limit. TSH/FT4 wnl .
- Psychiatry evaluated and adjusted Xanax dose with plan of slow taper
Ambulatory dysfunction
L hip pain - resolved
- likely from immobility, prolonged sitting likely induced by FTT
- Risk factors include obesity/depression
- Xray: Moderate bilateral hip osteoarthritis
- PT/OT evaluated and needs rehab placement
- pain control
Leukocytosis -resolved
- UA unremarkable
- CXR: Probable small left pleural effusion. Stable. Underlying pneumonia cannot be excluded.
- monitor for infectious symptoms
Groin folds fungal rash
- nystatin powder
Chronic home O2 dependant
- wean O2 as able
Essential HTN
- continue BB/EDMAR
Essential tremors
- continue BB
DVT ppx: Lovenox
Code: Full
Anticipated Discharge: Today
Subjective/Interval History
-
Date of Service: November 14, 2024
resting comfortably in bed
no new issues reported
Objective Data
-
Vital Signs:
Vital Signs
Temp Pulse Resp BP Pulse Ox
97.5 F 69 16 143/79 96
11/14/24 07:10 11/14/24 07:10 11/14/24 07:10 11/14/24 07:10 11/14/24 10:07
I&O
11/13/24 11/14/24 11/15/24
06:59 06:59 06:59
Intake Total 750 / 750 960 / 960
Balance 750 / 750 960 / 960
Review of Systems
-
Respiratory: Reports No Symptoms
Cardiac: Reports No Symptoms
Abdomen/GI: Reports No Symptoms
Physical Exam
-
General: Negative Respiratory Distress
HEENT: Oxygen
Neuro: Awake, Alert, Oriented and No Motor Deficits
[2024-11-14 14:05] VITALS: BP 143/53; PULSE 81; O2SAT 94
[2024-11-14 15:00] VITALS: BP 133/72
--- NOTE | 2024-11-14 16:40 | W.PN.UPDATE ---
Addendum entered and electronically signed by Sherry Grier MD 11/14/24 16:50:
note patient also takes paxil which can be very anticholinergic. he has been on it for some time so i was reluctant to change it but it too could be a cause of his confusion. if he does not clear some thought should be given to tapering it and
noting patient response. frankly he did not appear very depressed to me in the time i have seen him.
Original Note:
Update Note
Progress Note Update
patient seen chart reviewed. spoke with counseling case manager. at bedside. mr nye continues with lucid appropriate conversation interspersed with non sequiturs that are difficult to follow. there does appear still to be some confusion. xanax had been
reinstuted to prevent withdrawal although i would say withdrawal in the traditional sense of high bp tachycardia restlessness tremor heightened anxiety sweating n/v etc were not evident in the times that i saw him. would speed up the taper process
at this point. while it was ordered qid he only will get tid today given hold for sedation . as of tomorrow will decrease to bid and i would recommend a few days at that dose then once daily then dc. perhaps this will actually improve mentation. he
is likely going to [facility] tomorrow.
[2024-11-14] MEDS: LOVENOX 40 MG SC (17:17)
[2024-11-14 23:20] VITALS: BP 122/63
[2024-11-15 07:05] VITALS: BP 137/81
[2024-11-15] MEDS: PAXIL 40 MG PO (08:37)
[2024-11-15] MEDS: ZESTRIL 40 MG PO (08:37)
[2024-11-15] MEDS: INDERAL 20 MG PO (08:37)
[2024-11-15] MEDS: XANAX 0.5 MG PO (08:37)
[2024-11-15] MEDS: MYCOSTATIN CREAM 1 APPLIC TOPICAL (08:57)
[2024-11-15] MEDS: DESENEX/MITRAZOL/ZEASORB 1 APPLIC TOPICAL (08:57)
--- NOTE | 2024-11-15 09:37 | CM ---
called for Pickup time. TT sent to attending. Set up transport for 1430 today. updated with time.
--- NOTE | 2024-11-15 11:58 | W.PN.UPDATE ---
Update Note
Progress Note Update
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 Xanax has been tapered to a low dose; he has been continued on Paxil 40 mg. which is not ideal given it's anticholiergic properties, but has been stable for some
time. He apparently is doing much better now, but still presents with some mild difficulty expressing himself and his speech is vague at times.
Has tremor (parkinsonian?) in all limbs at rest.
Ths is an obese man, appearing older than his stated age. Oriented to situation and place. Knows he is scheduled for discharge to [facility] today.
Impression: Confusion resolving with reduction in alprazolam. Continue medications unchanged. As outpatient tapering of paroxetine could be considered and potentially stopping alprazolam.
--- NOTE | 2024-11-15 12:08 | PTCARENOTE ---
Patient OOb with assist x1 and walker to chair. Patient tolerated 100% of breakfast. Patient can only eat soft food, due to having his teeth pulled so he could get implants. Patient is orient to person and place, but forgetful to day and time.
Patient made aware of tranfer to SNF at 1430, patient verbalized understanding and is talking to his on phone.
[2024-11-15 14:04] VITALS: BP 145/77
--- NOTE | 2024-11-15 14:20 | W.DCSUMMARY ---
Discharge Summary
Discharge Data
Date of Admission: 11/09/24
Date of Discharge: 11/15/24
-
Pending Results: No
Hospital Course
Discharging Physician : Dr Beltran Deleon
Disposition : SNF rehab
Primary care physician : Dr Jorje Goode
Principal Discharge diagnosis :
Acute toxic encephalopathy
Possible mild cognitive impairment
Ambulatory dysfunction
Left hip pain
Reactive leukocytosis
Chronic Discharge diagnosis :
Chronic hypoxic respiratory failure
Essential hypertension
Obesity
Generalized anxiety disorder
Physical examination:
HEENT: No pallor, cyanosis. on o2 through NC
RESPIRATORY: Lungs clear to auscultation.
CVS: S1, S2 normal. RRR. No murmur, rub or gallop.
ABDOMEN: Soft, non-tender. No distension. BS+/normal.
EXTREMITIES: No peripheral cyanosis or edema.
EVP MANAGING DIRECTOR: AOx3. No focal deficits.
Hospital Course :
Patient is a 74-year-old male with above-mentioned past medical history was brought in for new onset of left hip pain ambulatory dysfunction and new onset of confusion. EMS was called by patient's spouse who is the primary caregiver. In ER patient
was noted to be disoriented there was also question of possible depression. Psychiatry was involved in care. Patient did not have any ongoing infection. B12/folate/TSH were within normal limit. patient on multiple psychoactive medication and
psychiatry recommended for patient to be weaned off of Wellbutrin and Xanax. Patient had slow improvement in mentation. Paxil is also anticholinergic in nature and may need to be taken off if patient continues to have problem. Also notably to be
confirmed patient may have some baseline memory problems/mild cognitive impairment setting in. Patient had left hip x-ray which did not show any acute abnormality. Patient was evaluated by physical therapy and was stable for rehab. After
stabilization patient was discharged to [facility] for short-term rehab.
Important imaging findings :
None
Procedure findings :
None
Discharge Plan
-
Patient Disposition: [facility]/SNF
Discharge Diagnosis/Procedures: Acute encephalopathy
Condition: Fair
Diet: Regular
Activity: As tolerated
Driving Restrictions: No driving
Bathing Restrictions: OK to Shower
Activity Restrictions/Additional Instructions:
Need to be weaned off of Xanax as tolerated,
Referrals:
Jorje Goode MD [Family Provider, [facility]] - in one week
Additional Discharge Medication Instructions: Stop wellbutrin xl
Prescriptions:
New
alprazolam [Xanax] 0.5 mg tablet
0.5 mg PO BID Qty: 6 0RF
Rx Instructions:
0.5mg BID for 7 Days THEN
0.25mg BID for 7 Days THEN
0.25mg Daily for 7 Days THEN
STOP
Continued
paroxetine HCl 20 MG tablet
40 mg PO DAILY
lisinopril 40 MG tablet
40 mg PO DAILY
cholecalciferol (vitamin D3) [Vitamin D3] 25 mcg (1,000 unit) Tablet
25 mcg PO DAILY
propranolol 20 mg Tablet
20 mg PO TID Qty: 90 0RF
Discontinued
bupropion HCl 150 MG tablet extended release 24 hr
150 mg PO Daily
alprazolam 1 MG tablet
1 mg PO TID PRN (Reason: anxiety) Qty: 10 0RF
Discharge Orders:
Discharge Patient (As Directed); Ordered 11/15/24
Ordered By: Beltran Deleon
Discharge Date and Time
Print Language: BULGARIAN
== END 2024-11-15 14:54 ==
LOC: 4 WEST ACU 15:13
PROVIDERS: Physician Assistant; Registered Nurse; ADMITTING PHYSICIAN Internal Medicine; ATTENDING PHYSICIAN Hospitalist; CONSULT PHYSICIAN Psychiatry & Neurology Psychiatry; EMERGENCY PHYSICIAN Emergency Medicine; FAMILY PHYSICIAN Family Medicine
DX: R26.2 Difficulty in walking, not elsewhere classified (principal); G92.8 Other toxic encephalopathy; F32.A Depression, unspecified; R62.7 Adult failure to thrive; I10 Essential (primary) hypertension; F41.1 Generalized anxiety disorder; E66.9 Obesity, unspecified; Z68.42 Body mass index [BMI] 45.0-49.9, adult; J96.11 Chronic respiratory failure with hypoxia; F17.200 Nicotine dependence, unspecified, uncomplicated; Z99.81 Dependence on supplemental oxygen; Z79.899 Other long term (current) drug therapy; Z86.73 Personal history of transient ischemic attack (TIA), and cerebral infarction without residual deficits; M16.0 Bilateral primary osteoarthritis of hip; F10.10 Alcohol abuse, uncomplicated; D72.829 Elevated white blood cell count, unspecified; G25.0 Essential tremor
CPT/HCPCS: 70450; 71045; 72192; 73552; 80048; 80053; 81003; 82550; 82607; 82746; 84425; 84439; 84443; 85025; 85027; 92526; 92610; 96360; 97116; 97163; 97167; 97530; 97535; 99284; G0378

== ENCOUNTER → 2024-12-12 11:31 | Outpatient (REF) | payer OTHER, SELFPAY ==
[2024-12-12 13:39] LABS: Hematocrit 44.4 % (39.0-52.0); Hemoglobin 14.5 g/dL (13.0-18.0); Mean Corp Hgb Conc. 32.7 g/dL (33.0-37.0); Mean Corpuscular Volume 97.6 fL (80.0-94.0); Nucleated Red Blood Cells % 0 % (-); Platelet Count 209 10^3/uL (130-400); Red Cell Dist. Width 12.8 % (11.5-14.5)
[2024-12-12 13:45] LABS: Blood Urea Nitrogen 16 mg/dl (9-20); Calcium 9.4 mg/dl (8.4-10.2); Carbon Dioxide 34 mmol/L (22-30); Chloride 100 mmol/L (98-107); Glucose 91 mg/dl (70-99); Potassium 4.3 mmol/L (3.5-5.1); Sodium 140 mmol/L (135-145); eGFR > 60.00
== END ==
LOC: OLABP 11:31
PROVIDERS: ATTENDING PHYSICIAN Family Medicine
DX: G92.8 Other toxic encephalopathy (principal); D72.829 Elevated white blood cell count, unspecified; J96.11 Chronic respiratory failure with hypoxia; I10 Essential (primary) hypertension; I47.10 Supraventricular tachycardia, unspecified; E66.2 Morbid (severe) obesity with alveolar hypoventilation; F41.9 Anxiety disorder, unspecified; Z68.42 Body mass index [BMI] 45.0-49.9, adult; R26.89 Other abnormalities of gait and mobility
CPT/HCPCS: 36415; 80048; 85025